=== PATIENT | female | born 1945 | race Hispanic/Latino ===

== ENCOUNTER 2021-12-23 00:12 | Emergency (ER) | payer OTHER ==
--- OUTSIDE RECORDS SUMMARY | 2021-12-23 00:18 | XMS REPORT | Continuity of Care Document ---
:1945 Author Organization [facility] t Address Formerly [facility], later [facility] [place] [id number] Care Team Providers Name Role Phone Kaya Gonzalez Attending Clinician Unavailable Problems This patient has no known problems. Allergies, Adverse Reactions, Alerts This patient has no known allergies or adverse reactions. Medications This patient has no known medications. Procedures This patient has no known procedures. Encounters Start End Encounter Admission Attending Care Care Encounter Source Date/Time Date/Time Type Type Clinicians Facility Department ID 2021-12-21 Outpatient Brooklynn Gonzalez [facility] [id number] 14:41:02 Ber[facility] forde [facility] Clin[facility] Results This patient has no known results.
--- NOTE | 2021-12-23 01:10 | EDPHYS ---
Physician Documentation [facility] Name: Ynes Jacob Age: 76 yrs Sex: Female : 1945 Arrival Date: 12/23/2021 Time: 00:18 Bed 14 Private MD: TEO Physician Cesar Melvin HPI: 12/23 01:04 This 76 yrs old Female presents to ER via Ambulatory with complaints of eleanor Vomiting, High Blood Pressure, Irregular Pulse. 01:04 The patient presents to the emergency department with nausea, vomiting, that is eleanor intermittent. Onset: The symptoms/episode began/occurred this morning, today. Possible causes: unknown. The symptoms are aggravated by nothing. The symptoms are alleviated by nothing. Associated signs and symptoms: Pertinent positives: belching, slow hr. Severity of symptoms: At their worst the symptoms were moderate in the emergency department the symptoms are unchanged. The patient has not experienced similar symptoms in the past. Historical: - Allergies: 00:37 No Known Allergies; vc1 - Home Meds: 00:37 glimepiride 2 mg Oral tab 1 tab once daily [Active]; spironolactone 50 mg Oral tab 1 vc1 tab once daily [Active]; metformin 1,000 mg Oral tab 1 tab 2 times per day [Active]; lisinopril 40 mg Oral tab 1 tab once daily [Active]; alendronate 70 mg oral tab 1 tab once wkly [Active]; amlodipine 10 mg tab 1 tab once daily [Active]; atorvastatin 20 mg oral tab 1 tab once daily [Active]; - PMHx: 00:37 Hypertensive disorder; Diabetes mellitus; vc1 - PSHx: 00:37 section; vc1 - Immunization history:: Flu vaccine is not up to date. - Social history:: Smoking status: Patient denies any tobacco usage or history of. - Family history:: not pertinent. ROS: 01:04 Constitutional: Negative for fever, chills, and weight loss, Eyes: Negative for injury, eleanor pain, redness, and discharge, ENT: Negative for injury, pain, and discharge, Neck: Negative for injury, pain, and swelling, Respiratory: Negative for shortness of breath, cough, wheezing, and pleuritic chest pain, Back: Negative for injury and pain, : Negative for injury, bleeding, discharge, and swelling, MS/Extremity: Negative for injury and deformity, Skin: Negative for injury, rash, and discoloration, Neuro: Negative for headache, weakness, numbness, tingling, and seizure, Psych: Negative for depression, anxiety, suicide ideation, homicidal ideation, and hallucinations, Allergy/Immunology: Negative for hives, rash, and allergies, Endocrine: Negative for neck swelling, polydipsia, polyuria, polyphagia, and marked weight changes, Hematologic/Lymphatic: Negative for swollen nodes, abnormal bleeding, and unusual bruising. 01:04 Cardiovascular: Positive for palpitations. 01:04 Abdomen/GI: Positive for nausea and vomiting. Exam: 01:04 Constitutional: This is a well developed, well nourished patient who is awake, alert, eleanor and in no acute distress. Head/Face: Normocephalic, atraumatic. Eyes: Pupils equal round and reactive to light, extra-ocular motions intact. Lids and lashes normal. Conjunctiva and sclera are non-icteric and not injected. Cornea within normal limits. Periorbital areas with no swelling, redness, or edema. ENT: Nares patent. No nasal discharge, no septal abnormalities noted. Tympanic membranes are normal and external auditory canals are clear. Oropharynx with no redness, swelling, or masses, exudates, or evidence of obstruction, uvula midline. Mucous membranes moist. Neck: Trachea midline, no thyromegaly or masses palpated, and no cervical lymphadenopathy. Supple, full range of motion without nuchal rigidity, or vertebral point tenderness. No Meningismus. Chest/axilla: Normal chest wall appearance and motion. Nontender with no deformity. No lesions are appreciated. Respiratory: Lungs have equal breath sounds bilaterally, clear to auscultation and percussion. No rales, rhonchi or wheezes noted. No increased work of breathing, no retractions or nasal flaring. Abdomen/GI: Soft, non-tender, with normal bowel sounds. No distension or tympany. No guarding or rebound. No evidence of tenderness throughout. Back: No spinal tenderness. No costovertebral tenderness. Full range of motion. Female : Normal external genitalia. Skin: Warm, dry with normal turgor. Normal color with no rashes, no lesions, and no evidence of cellulitis. MS/ Extremity: Pulses equal, no cyanosis. Neurovascular intact. Full, normal range of motion. Neuro: Awake and alert, GCS 15, oriented to person, place, time, and situation. Cranial nerves II-XII grossly intact. Motor strength 5/5 in all extremities. Sensory grossly intact. Cerebellar exam normal. Normal gait. Psych: Awake, alert, with orientation to person, place and time. Behavior, mood, and affect are within normal limits. 01:04 Cardiovascular: Rate: bradycardic, actual rate is 40 bpm, Rhythm: regular, Pulses: Pulses are 4+ in bilateral radial, brachial, femoral, popliteal, posterior tibial and and dorsalis pedis arteries.. Heart sounds: normal, Edema: is not appreciated, JVD: is not appreciated. 01:04 ECG was reviewed by the Attending Physician. Vital Signs: 00:28 BP 178 / 55; Pulse 38; Resp 18; Temp 97.1; Pulse Ox 96% ; Weight 68.49 kg; Height 5 ft. vc1 0 in. (152.40 cm); Pain 0/10; 00:56 BP 150 / 60; Pulse 40; Resp 18; Temp 98.6; Pulse Ox 99% on R/A; Pain 0/10; suraj 01:35 BP 150 / 50; Pulse 40; Resp 18; Pulse Ox 98% on R/A; Pain 0/10; suraj 02:03 BP 166 / 50; Pulse 40; Resp 18; Pulse Ox 99% on R/A; Pain 0/10; suraj 03:40 BP 187 / 55; Pulse 39; Resp 18; Pulse Ox 99% on R/A; Pain 0/10; suraj 04:30 BP 155 / 47; Pulse 40; Resp 16; Pulse Ox 100% on R/A; Pain 0/10; suraj 05:13 BP 183 / 55; Pulse 40; Resp 18; Pulse Ox 100% on R/A; Pain 0/10; suraj 05:51 BP 176 / 57; Pulse 40; Resp 16; Temp 98.5; Pulse Ox 100% on R/A; Pain 0/10; suraj 00:28 Body Mass Index 29.49 (68.49 kg, 152.40 cm) vc1 MDM: 00:45 Patient medically screened. [facility] 01:14 Data reviewed: vital signs, nurses notes, lab test result(s), EKG, radiologic studies, eleanor plain films. Data interpreted: night monitor: rate is 40 beats/min, rhythm is regular, Pulse oximetry: on room air is 99 %. Test interpretation: by ED physician or midlevel provider: ECG, plain radiologic studies. Counseling: I had a detailed discussion with the patient and/or guardian regarding: the historical points, exam findings, and any diagnostic results supporting the discharge/admit diagnosis, lab results, radiology results, the need to transfer to another facility, for higher level of care, [facility] does not immediately have the required specialist. 12/23 00:45 Order name: Basic Metabolic Panel; Complete Time: 01:39 [facility] 12/23 00:45 Order name: CBC with Diff; Complete Time: :28 [facility] 12/23 00:45 Order name: LFT's; Complete Time: :39 [facility] 12/23 00:45 Order name: Magnesium; Complete Time: :39 [facility] 12/23 00:45 Order name: NT PRO-BNP; Complete Time: :39 [facility] 12/23 00:45 Order name: PT-INR; Complete Time: : [facility] 12/23 00:45 Order name: Troponin HS; Complete Time: :39 [facility] 12/23 00:45 Order name: XRAY Chest (1 view) [facility] 12/23 00:45 Order name: TSH; Complete Time: :39 [facility] 12/23 00:45 Order name: SARS-COV-2 RT PCR (Document "Date of Onset" if Symptomatic) [facility] 12/23 01:23 Order name: Urine Dipstick-Ancillary; Complete Time: 01:28 [facility] 12/23 06:03 Order name: Glucose, Ancillary Testing [facility] 12/23 00:45 Order name: Cardiac monitoring; Complete Time: 00:54 [facility] 12/23 00:45 Order name: EKG - Nurse/Tech; Complete Time: 00:45 [facility] 12/23 00:45 Order name: IV Saline Lock; Complete Time: 00:53 [facility] 12/23 00:45 Order name: Labs collected and sent; Complete Time: 00:53 [facility] 12/23 00:45 Order name: O2 Per Protocol; Complete Time: 00:53 [facility] 12/23 00:45 Order name: O2 Sat Monitoring; Complete Time: 00:53 [facility] 12/23 00:45 Order name: Urine Dipstick-Ancillary (obtain specimen); Complete Time: 01:24 [facility] 12/23 02:35 Order name: Misc. Order: defib pads; Complete Time: 02:59 tw5 EC:04 Rate is 40 beats/min. Rhythm is regular. QRS [place] is Normal. VT interval is normal. [place] [address] msec. No Q waves. T waves are Normal. No ST changes noted. Clinical impression: 3rd degree heart block. Interpreted by me. Reviewed by me. Administered Medications: :19 Drug: NS 0.9% 1000 ml Route: IV; Rate: 125 ml/hr; Site: right antecubital; suraj 02:02 Drug: Magnesium Sulfate 1 grams Route: IVPB; Infused Over: 1 hrs; Site: right suraj antecubital; 03:17 Follow up: Response: No adverse reaction; IV Status: Completed infusion; IV Intake: 25mlbo Disposition Summary: 12/23/21 01:09 Transfer Ordered Reason: Higher level of care eleanor Condition: Serious eleanor Problem: new eleanor Symptoms: have improved eleanor Transfer Location: [facility](12/23/21 02:29) eleanor Accepting Physician: to [facility](12/23/21 06:28) suraj Diagnosis - Other specified heart block - 3rd eleanor - Vomiting eleanor - Anemia, unspecified eleanor - Type 2 diabetes mellitus with hyperglycemia eleanor - Hypomagnesemia eleanor Forms: - Medication Reconciliation Form eleanor - SBAR form eleanor Signatures: Dispatcher [employer] Cesar Alvarez MD MD cha Wood, Tiffany tw5 Kassy June RN Sandi Miguel RN RN vc1 Corrections: (The following items were deleted from the chart) 00:39 00:37 PSHx: None; vc1 vc1 01:42 01:09 to [facility] eleanor eleanor 02:29 01:09 [facility] eleanor eleanor 02:29 01:42 to [facility] eleanor eleanor 06:28 02:29 to [facility] eleanor suraj
--- NOTE | 2021-12-23 01:10 | ER ---
Nurse's Notes [facility] Name: Ynes Jacob Age: 76 yrs Sex: Female : 1945 Arrival Date: 12/23/2021 Time: 00:18 Bed 14 Private MD: Diagnosis: Other specified heart block-3rd;Vomiting;Anemia, unspecified;Type 2 diabetes mellitus with hyperglycemia;Hypomagnesemia Presentation: 12/23 00:28 Chief complaint: "She has a history of low pulse. She [facility] and vc1 they switched her blood pressure. I took her pulse it was 38. Today she told me that she didn't feel well and she threw up twice.". Coronavirus screen: Vaccine status: Patient reports being unvaccinated. Ebola Screen: Patient negative for fever greater than or equal to 101.5 degrees Fahrenheit, and additional compatible Ebola Virus Disease symptoms Patient denies exposure to infectious person. Patient denies travel to an Ebola-affected area in the 21 days before illness onset. Initial Sepsis Screen: Does the patient meet any 2 criteria? No. Patient's initial sepsis screen is negative. Does the patient have a suspected source of infection? No. Patient's initial sepsis screen is negative. Risk Assessment: Do you want to hurt yourself or someone else? Patient reports no desire to harm self or others. Onset of symptoms is unknown. 00:28 Method Of Arrival: Ambulatory vc1 00:28 Acuity: [facility] 3 vc1 Triage Assessment: 00:37 General: Appears in no apparent distress. Behavior is calm, cooperative, appropriate vc1 for age. Pain: Denies pain. GI: Reports nausea, vomiting. Historical: - Allergies: 00:37 No Known Allergies; vc1 - Home Meds: 00:37 glimepiride 2 mg Oral tab 1 tab once daily [Active]; spironolactone 50 mg Oral tab 1 vc1 tab once daily [Active]; metformin 1,000 mg Oral tab 1 tab 2 times per day [Active]; lisinopril 40 mg Oral tab 1 tab once daily [Active]; alendronate 70 mg oral tab 1 tab once wkly [Active]; amlodipine 10 mg tab 1 tab once daily [Active]; atorvastatin 20 mg oral tab 1 tab once daily [Active]; - PMHx: 00:37 Hypertensive disorder; Diabetes mellitus; vc1 - PSHx: 00:37 section; vc1 - Immunization history:: Flu vaccine is not up to date. - Social history:: Smoking status: Patient denies any tobacco usage or history of. - Family history:: not pertinent. Screenin:57 Abuse screen: Denies threats or abuse. Denies injuries from another. Nutritional suraj screening: No deficits noted. Tuberculosis screening: No symptoms or risk factors identified. Fall Risk None identified. Assessment: 00:54 Reassessment: Patient appears in no apparent distress at this time. I recv'd the pt to room #14 \\T\\ 0045. Her granddaughter is at bedside. The pt is Eritrean speaking mostly, but understands South African, per the pt and her granddaughter. They report that the pt has had "a low heartbeat for years, but down in the 30s for the last three days". 00:58 GI: Abdomen is non-distended. suraj 03:00 General: Per the director of community center, EMS will be here for the pt \\T\\ 6am. The defibrillator suraj pads were placed on the pt, per MD's order. . 03:26 General: Report called to [phone], \\T\\ [facility]. . suraj 05:51 General: The pt's blood sugar, at this time, is 127. . suraj 06:24 General: [facility] is here to take the pt to [facility]. Her suraj granddaughter is at bedside and will follow them, as she wants to keep her car. . Vital Signs: 00:28 BP 178 / 55; Pulse 38; Resp 18; Temp 97.1; Pulse Ox 96% ; Weight 68.49 kg; Height 5 ft. vc1 0 in. (152.40 cm); Pain 0/10; 00:56 BP 150 / 60; Pulse 40; Resp 18; Temp 98.6; Pulse Ox 99% on R/A; Pain 0/10; suraj 01:35 BP 150 / 50; Pulse 40; Resp 18; Pulse Ox 98% on R/A; Pain 0/10; suraj 02:03 BP 166 / 50; Pulse 40; Resp 18; Pulse Ox 99% on R/A; Pain 0/10; suraj 03:40 BP 187 / 55; Pulse 39; Resp 18; Pulse Ox 99% on R/A; Pain 0/10; suraj 04:30 BP 155 / 47; Pulse 40; Resp 16; Pulse Ox 100% on R/A; Pain 0/10; suraj 05:13 BP 183 / 55; Pulse 40; Resp 18; Pulse Ox 100% on R/A; Pain 0/10; suraj 05:51 BP 176 / 57; Pulse 40; Resp 16; Temp 98.5; Pulse Ox 100% on R/A; Pain 0/10; suraj 00:28 Body Mass Index 29.49 (68.49 kg, 152.40 cm) vc1 ED Course: 00:18 Patient arrived in ED. ag3 00:28 Arm band placed on right wrist. EKG completed in triage. Results shown to MD. vc1 00:36 Triage completed. vc1 00:43 Cesar Melvin MD is Attending Physician. eleanor 00:45 EKG done, by ED staff, reviewed by Cesar Melvin MD. lt3 00:53 Kassy June, RN is Primary Nurse. suraj 00:53 SARS-COV-2 RT PCR (Document "Date of Onset" if Symptomatic) Sent. suraj 00:53 TSH Sent. suraj 00:54 Basic Metabolic Panel Sent. suraj 00:54 CBC with Diff Sent. suraj 00:54 LFT's Sent. suraj 00:54 Magnesium Sent. suraj 00:54 NT PRO-BNP Sent. suraj 00:54 PT-INR Sent. suraj 00:54 Troponin HS Sent. suraj 00:57 No provider procedures requiring assistance completed. Inserted saline lock: 20 gauge suraj in right antecubital area, using aseptic technique. 00:58 Patient has correct armband on for positive identification. Adult w/ patient. Cardiac suraj monitor on. Pulse ox on. NIBP on. 01:11 XRAY Chest (1 view) In Process Unspecified. EDMS 01:13 SARS-COV-2 RT PCR (Document "Date of Onset" if Symptomatic) Sent. suraj 01:24 Urine collected: clean catch specimen. lt3 01:36 initiated a transfer with Salena from [facility]. mw2 01:48 [facility] Denied due to capacity. mw2 01:52 initiated a transfer with [facility]. mw2 02:[address] Melvin with Dr. Suarez from [facility]. mw2 02:36 administrative approval given by Manuel Santillan/ patient has been accepted to [address] to the Heart [facility]/ Dr. Long accepted the patient in transfer/report to be called to [phone]. 05:53 transfer transportation to receiving facility. suraj 06:27 Patient transferred, IV remains in place. suraj Administered Medications: 01:19 Drug: NS 0.9% 1000 ml Route: IV; Rate: 125 ml/hr; Site: right antecubital; suraj 02:02 Drug: Magnesium Sulfate 1 grams Route: IVPB; Infused Over: 1 hrs; Site: right suraj antecubital; 03:17 Follow up: Response: No adverse reaction; IV Status: Completed infusion; IV Intake: 25mlbo Intake: 03:17 IV: 25ml; Total: 25ml. suraj Outcome: 00:59 Condition: stable suraj 01:09 ER care complete, transfer ordered by MD. webster 06:26 Transferred by ground EMS to [facility], Transfer form completed. X-rays sent suraj w/ patient. 06:28 Patient left the ED. suraj Signatures: Dispatcher [employer] EDMS Cesar Melvin MD MD cha [place], MyKena mw2 Cecelia Haynes 3 Soo Suarez 3 Kassy June RN RN Sandi Suarez RN RN vc1 Corrections: (The following items were deleted from the chart) 00:39 00:37 PSHx: None; vc1 vc1
[2021-12-23 01:17] LABS: Protime INR 1.09
[2021-12-23] MEDS ORDERED: NA CHLORIDE 0.9% 1,000 ML ONE (01:17)
[2021-12-23 01:18] LABS: Absolute Lymphocytes (CBC) 1.1 K/uL (0.7-4.9); Hematocrit 31.2 % (36.0-45.0); Lymphocytes % 11.1 % (15.3-44.8); MPV 8.2 fL (7.6-11.3); RBC Red Blood Cell Count 3.42 M/uL (3.86-4.86)
[2021-12-23 01:23] LABS: Urine Blood Negative (Negative); Urine Glucose 2+ (Negative); Urine Protein 3+ (Negative); Urine Specific Gravity 1.025 (1.005-1.030); Urine pH 6.5 (5.0-7.0)
[2021-12-23 01:37] LABS: Bilirubin Direct 0.1 mg/dL (0-0.2); Bilirubin Total 0.3 mg/dL (0.2-1.0); Magnesium 1.5 mg/dL (1.8-2.4); Potassium 3.6 mmol/L (3.5-5.1); Protein, Total 7.8 g/dL (6.4-8.2); Thyroid Stimulating Hormone 0.769 uIU/mL (0.360-3.740); Troponin High Sensitivity 16.6 pg/mL (<58.9)
[2021-12-23] MEDS ORDERED: Magnesium Sulfate 2gm IVPB 2 G/50 ML BAG IV ONE (01:52)
[2021-12-23 06:40] VITALS: O2SAT 100
[2021-12-23 06:42] VITALS: BP 176/57; TEMP 98.5
--- NOTE | 2021-12-23 08:38 | RAD REPORT ---
EXAM DESCRIPTION: Tita Single View12/23/2021 1:12 am CLINICAL HISTORY: Chest pain COMPARISON: none FINDINGS: The lungs appear clear of acute infiltrate. The heart is moderately enlarged IMPRESSION: No acute abnormalities displayed. If patient's symptoms persist PA and lateral chest se lucian would be recommended
== END 2021-12-23 06:28 | disposition short-term general hospital (02) ==
LOC: ER 00:12
DX: I45.5 Other specified heart block (principal); D64.9 Anemia, unspecified; E11.65 Type 2 diabetes mellitus with hyperglycemia; E83.42 Hypomagnesemia; I10 Essential (primary) hypertension; Z20.822 Contact with and (suspected) exposure to COVID-19
CPT/HCPCS: 96365; 93005; 85025; 80048; 36415; 83735; 85610; 82947; 80076; 84443; 81003; 84484; 83880; 71045; 99285; U0003; J3475; J7030

== ENCOUNTER 2023-10-24 07:15 | Day surgery (SDC) | payer OTHER ==
[2023-10-24] MEDS ORDERED: NA CHLORIDE 0.9% 1,000 ML ONE (07:35)
[2023-10-24 08:08] VITALS: O2SAT 100
[2023-10-24] MEDS ORDERED: propofoL 200 MG/20 ML VIAL IV ONE (08:26)
[2023-10-24] MEDS ORDERED: LIDOCAINE 1% MPF 5 ML VIAL ONE (08:26)
[2023-10-24] MEDS ORDERED: EPHEDRINE SULF 50 MG/ML VIAL ONE (08:47)
[2023-10-24 10:12] VITALS: BP 126/55; TEMP 98
== END 2023-10-24 09:45 | disposition home or self-care (01) ==
LOC: OR 07:15
PROVIDERS: ATTEND Surgery
PROC: 0DBL8ZX Excision of Transverse Colon, Via Natural or Artificial Opening Endoscopic, Diagnostic (ICD-10-PCS; principal; 2023-10-24 08:30)
DX: Z12.11 Encounter for screening for malignant neoplasm of colon (principal); K63.5 Polyp of colon; K64.4 Residual hemorrhoidal skin tags; K64.8 Other hemorrhoids; K57.30 Diverticulosis of large intestine without perforation or abscess without bleeding; K63.89 Other specified diseases of intestine
CPT/HCPCS: 80048; 36415; 82947; 88305; 45384; J2704; J2001; J7030

== ENCOUNTER 2024-02-04 11:48 | Inpatient (IN) | payer OTHER ==
[2024-02-04 12:36] LABS: PT Prothrombin Time 11.6 SECONDS (9.5-12.5); Protime INR 1.06
[2024-02-04 12:37] LABS: Absolute Lymphocytes (CBC) 0.8 K/uL (0.7-4.9); Absolute Monocytes 0.6 K/uL (0.1-1.3); Absolute Neutrophil 9.1 K/uL (1.8-8.0); Basophils % 0.2 % (0-1.3); Eosinophils % 0.2 % (0-4.4); Hemoglobin 9.5 g/dL (12.0-15.0); Lymphocytes % 7.9 % (15.3-44.8); MCH 32.2 pg (27.0-35.0); MCHC 33.9 g/dL (32.0-36.0); MCV 94.9 fL (80-100); MPV 7.1 fL (7.6-11.3); Monocytes % 6.1 % (3.3-12.3); Neutrophils % 85.6 % (41.7-73.7); Platelets 293 thou/uL (152-406); RBC Red Blood Cell Count 2.94 M/uL (3.86-4.86); Red Cell Distribution Width 12.2 % (12.1-15.2)
[2024-02-04 12:53] LABS: Albumin 3.6 g/dL (3.4-5.0); Albumin/Globulin Ratio 1.1 (1.1-1.8); Anion Gap 16.2 mEq/L (5.0-15.0); Bilirubin Direct 0.1 mg/dL (0-0.2); Bilirubin Indirect, Calculated 0.3 mg/dL (0.2-0.8); Bilirubin Total 0.4 mg/dL (0.2-1.0); Globulin 3.4 g/dL (2.3-3.5); Potassium 5.2 mEq/L (3.5-5.1); Troponin High Sensitivity 7.4 pg/mL (<58.9)
[2024-02-04 12:56] LABS: Blood Morphology Comment NOT SEEN (NOT SEEN); Platelet Estimate ADEQ; White Blood Cell Scan OK (OK)
[2024-02-04 13:00] LABS: Magnesium 0.9 mg/dL (1.6-2.4)
[2024-02-04] MEDS ORDERED: NA CHLORIDE 0.9% 1,000 ML ONE (13:12)
[2024-02-04] MEDS ORDERED: Magnesium Sulfate 2gm IVPB 2 G/50 ML BAG IV ONE (13:12)
--- NOTE | 2024-02-04 13:26 | ER ---
Nurse's Notes [facility] Name: Ynes Jacob Age: 78 yrs Sex: Female : 1945 Arrival Date: 02/04/2024 Time: 11:48 Bed 17 Private MD: Diagnosis: Hypo-osmolality and hyponatremia;Hypomagnesemia;Anemia, unspecified;syncope Presentation: 02/03 11:59 Chief complaint: EMS states: pt had a syncopal episode while at work, was caught by a 6 customer and did not hit her head. pts boss reported to EMS that this was her 3rd episode in 1 week. EMS reports pt was hypotensive with SBP of 48 en route. BGL 190. Coronavirus screen: At this time, the client does not indicate any symptoms associated with coronavirus-19. Ebola Screen: No symptoms or risks identified at this time. Initial Sepsis Screen: Does the patient meet any 2 criteria? No. Patient's initial sepsis screen is negative. Does the patient have a suspected source of infection? No. Patient's initial sepsis screen is negative. Risk Assessment: Do you want to hurt yourself or someone else? Patient reports no desire to harm self or others. Onset of symptoms was February 04, 2024. 11:59 Method Of Arrival: EMS: [place] [id number] 11:59 Acuity: MC 3 kc6 Triage Assessment: 12:01 General: Appears in no apparent distress. comfortable, well groomed, well developed, kc6 Behavior is calm, cooperative, appropriate for age. Pain: Denies pain. EENT: No signs and/or symptoms were reported regarding the EENT system. Neuro: Level of Consciousness is awake, alert, obeys commands, Oriented to person, place, time, situation, Appropriate for age Reports a syncopal episode. Cardiovascular: Denies chest pain, Capillary refill < 3 seconds. Respiratory: Airway is patent Trachea midline Respiratory effort is even, unlabored, Respiratory pattern is regular, symmetrical. GI: No signs and/or symptoms were reported involving the gastrointestinal system. : No signs and/or symptoms were reported regarding the genitourinary system. Derm: No signs and/or symptoms reported regarding the dermatologic system. Skin is intact, is healthy with good turgor, Skin is pink, warm \T\ dry. Musculoskeletal: No signs and/or symptoms reported regarding the musculoskeletal system. Circulation, motion, and sensation intact. Capillary refill < 3 seconds, Range of motion: intact in all extremities. Historical: - Allergies: 12:01 No Known Allergies; kc6 - PMHx: 12:01 diabetes mellitus; Hypertensive disorder; Anemia; kc6 - PSHx: 12:01 section; pacemaker ( section); kc6 - Immunization history:: Adult Immunizations unknown. - Social history:: Smoking status: Patient denies any tobacco usage or history of. Screenin:03 [facility] ED Fall Risk Assessment (Adult) History of falling in the last 3 months, kc6 including since admission Yes- physiologic fall (2 pts) Confusion or Disorientation No (0 pts) Intoxicated or Sedated No (0 pts) Impaired Gait No (0 pts) Mobility Assist Device Used No (0 pt) Altered Elimination No (0 pt) Score/Fall Risk Level 0 - 2 = Low Risk. Abuse screen: Denies threats or abuse. Denies injuries from another. Nutritional screening: No deficits noted. Tuberculosis screening: No symptoms or risk factors identified. Assessment: 12:03 Reassessment: please see triage. kc6 13:03 Reassessment: Patient appears in no apparent distress at this time. No changes from [facility] previously documented assessment. Patient and/or family updated on plan of care and expected duration. Pain level reassessed. Patient is alert, oriented x 3, equal unlabored respirations, skin warm/dry/pink. GI: Stools are reported to be are black. 13:55 Reassessment: Patient appears in no apparent distress at this time. No changes from 6 previously documented assessment. Patient and/or family updated on plan of care and expected duration. Pain level reassessed. Patient is alert, oriented x 3, equal unlabored respirations, skin warm/dry/pink. Vital Signs: 11:59 BP 126 / 90; Pulse 67; Resp 16 S; Pulse Ox 96% on R/A; Weight 52.16 kg (R); Height 4 kc6 ft. 5 in. (R); Pain 0/10; 12:19 BP 109 / 78; kc6 12:43 BP 134 / 89; Pulse 66; Resp 16 S; Pulse Ox 100% on R/A; as6 13:55 BP 116 / 55; Pulse 66; Resp 16 S; Pulse Ox 94% on R/A; kc6 11:59 Body Mass Index 28.78 (52.16 kg, 134.62 cm) kc6 11:59 Pain Scale: Adult kc6 ED Course: 11:59 Patient arrived in ED. kc6 12:00 Bran Abrams DO is Attending Physician. ms3 12:01 Triage completed. kc6 12:01 Arm band placed on. kc6 12:03 Adrienne Palacios RN is Primary Nurse. kc6 12:03 Patient has correct armband on for positive identification. Placed in gown. Bed in low kc6 position. Call light in reach. Side rails up X2. Client placed on continuous cardiac and pulse oximetry monitoring. NIBP monitoring applied. bottle inspector on. 12:03 Maintain EMS IV. Dressing intact. Good blood return noted. Site clean \T\ dry. Gauge \T\ [place] 6 site: 20G LW. Patient maintains SpO2 saturation greater than 95% on room air. 12:42 Diet: Patient given snack. Patient given water. as6 13:06 Chest Single View XRAY In Process Unspecified. EDMS 13:26 Grupo Maradiaga MD is Hospitalizing Provider. ms3 13:51 Straight cath inserted, using sterile technique, 16 Fr. Specimen obtained. Returned kc6 clear yellow urine. Patient tolerated well. 13:56 No provider procedures requiring assistance completed. Patient admitted, IV remains in kc6 place. 19:33 Primary Nurse role handed off by Adrienne Palacios, ÁNGELA as6 Administered Medications: 13:51 Drug: Magnesium Sulfate IVPB 2 grams IVPB once over 2 hrs Route: IVPB; Infused Over: 2 kc6 hrs; Site: left wrist; 15:11 Follow up: Response: No adverse reaction; IV Status: Completed infusion; IV Intake: 45ooht6 13:51 Drug: NS 0.9% IV 1000 ml IV at 125 ml/hr continuous Route: IV; Rate: 125 ml/hr; Site: kc left wrist; 15:11 Follow up: Response: No adverse reaction; IV Status: Infusion continued upon admission; kc6 IV Intake: 1000ml Medication: 12:38 VIS not applicable for this client. as6 Intake: 15:11 IV: 50ml; Total: 50ml. kc6 15:11 IV: 1000ml; Total: 1050ml. kc6 Outcome: 13:26 Decision to Hospitalize by Provider. ms3 13:56 Admitted to ER Hold. Please see [facility] for further documentation. kc6 13:56 Condition: stable 13:56 Instructed on the need for admit, 02/04 13:38 Patient left the ED. kc6 Signatures: Dispatcher [employer] EDMS Bran Abrams DO DO ms3 Dalton Esquivel RN RN as6 Adrienne Palacios RN RN kc6
--- NOTE | 2024-02-04 13:26 | EDPHYS ---
Physician Documentation [facility] Name: Ynes Jacob Age: 78 yrs Sex: Female : 1945 Arrival Date: 02/04/2024 Time: 11:48 Bed 17 Private MD: ED Physician Bran Abrams HPI: 02/03 12:36 This 78 yrs old Female presents to ER via EMS with complaints of Syncope. ms3 12:36 78-year-old female with past medical history of diabetes, hypertension, anemia presents ms3 to the emergency department for syncopal episode while at work at [employer]. Patient denies nausea, vomiting, shortness of breath, chest pain, headache. Patient states this is her third syncopal episode this week.. Historical: - Allergies: 12:01 No Known Allergies; kc6 - PMHx: 12:01 diabetes mellitus; Hypertensive disorder; Anemia; kc6 - PSHx: 12:01 section; pacemaker ( section); kc6 - Immunization history:: Adult Immunizations unknown. - Social history:: Smoking status: Patient denies any tobacco usage or history of. ROS: 12:36 Constitutional: Negative for fever, and chills. Neck: Negative for injury, pain, and ms3 swelling, Cardiovascular: Negative for chest pain, and palpitations. Respiratory: Negative for shortness of breath, cough, wheezing, and pleuritic chest pain, Abdomen/GI: Negative for abdominal pain, nausea, vomiting, diarrhea, and constipation, MS/Extremity: Negative for injury and deformity, Skin: Negative for injury, rash, and discoloration, 12:36 Neuro: Positive for syncope, Exam: 12:36 Constitutional: This is a well developed, well nourished patient who is awake, alert, ms3 and in no acute distress. Head/Face: Normocephalic, atraumatic. Neck: Trachea midline, no cervical lymphadenopathy. Supple, full range of motion without nuchal rigidity, or vertebral point tenderness. No Meningismus. Chest/axilla: Normal chest wall appearance and motion. Nontender with no deformity. Cardiovascular: Regular rate and rhythm with a normal S1 and S2. No gallops, murmurs, or rubs. Normal PMI, no JVD. No pulse deficits. Respiratory: Lungs have equal breath sounds bilaterally, clear to auscultation and percussion. No rales, rhonchi or wheezes noted. No increased work of breathing, no retractions or nasal flaring. Abdomen/GI: Soft, non-tender, with normal bowel sounds. No distension or tympany. No guarding or rebound. No evidence of tenderness throughout. Skin: Warm, dry with normal turgor. Normal color with no rashes, no lesions, and no evidence of cellulitis. MS/ Extremity: Pulses equal, no cyanosis. Neurovascular intact. Full, normal range of motion. 12:46 ECG was reviewed by the Attending Physician. ms3 Vital Signs: 11:59 BP 126 / 90; Pulse 67; Resp 16 S; Pulse Ox 96% on R/A; Weight 52.16 kg (R); Height 4 kc6 ft. 5 in. (R); Pain 0/10; 12:19 BP 109 / 78; kc6 12:43 BP 134 / 89; Pulse 66; Resp 16 S; Pulse Ox 100% on R/A; as6 13:55 BP 116 / 55; Pulse 66; Resp 16 S; Pulse Ox 94% on R/A; kc6 11:59 Body Mass Index 28.78 (52.16 kg, 134.62 cm) kc6 11:59 Pain Scale: Adult kc6 MDM: 12:00 Patient medically screened. ms3 12:36 Differential Diagnosis: cardiac arrhythmia, idiopathic syncope, vasovagal episode. ms3 14:00 Data reviewed: vital signs, nurses notes, lab test result(s), EKG, radiologic studies, ms3 and as a result, I will admit patient. Consideration of Admission/Observation Patient was admitted/placed on observation. Management of patient was discussed with the following: Hospitalist: Dr Maradiaga. I considered the following discharge prescriptions or medication management in the emergency department Medications were administered in the Emergency Department. See MAR. Independent interpretation of the following test(s) in the Emergency Department EKG: See my EKG interpretation above. Historians other than the Patient: EMS: [place]. Counseling: I had a detailed discussion with the patient and/or guardian regarding the historical points, exam findings, and any diagnostic results supporting the discharge/admit diagnosis, lab results, radiology results, the need for outpatient follow up, to return to the emergency department if symptoms worsen or persist or if there are any questions or concerns that arise at home. Special discussion: I discussed with the patient/guardian in detail that at this point there is no indication for admission to the hospital. It is understood, however, that if the symptoms persist or worsen the patient needs to return immediately for re-evaluation. ED course: Discussed necessity for admission with patient. Patient understands agrees with plan. All questions were answered. 02/03 12:01 Order name: Basic Metabolic Panel; Complete Time: 13:07 ms3 02/03 12:01 Order name: CBC with Diff; Complete Time: 13: ms3 02/03 12:01 Order name: Hepatic Function; Complete Time: 13:08 ms3 02/03 12:01 Order name: Magnesium; Complete Time: 13: ms3 02/03 12:01 Order name: Protime (+inr); Complete Time: 13: ms3 02/03 12:01 Order name: Ptt, Activated; Complete Time: 13: ms3 02/03 12:01 Order name: Troponin High Sensitivity; Complete Time: 13: ms3 02/03 12:01 Order name: Urinalysis w/ reflexes; Complete Time: 15:30 ms3 02/03 12:56 Order name: CBC Smear Scan; Complete Time: 13: EDMS 02/03 13:09 Order name: Urine Sodium Random; Complete Time: 15:30 ms3 02/03 13:09 Order name: Urine Osmolality; Complete Time: 15:30 ms3 02/03 13:10 Order name: Osmolality, Serum; Complete Time: 15:30 ms3 02/03 16:24 Order name: Glucose, Ancillary Testing EDMS 02/03 19:09 Order name: Basic Metabolic Panel EDMS 02/03 19:09 Order name: Troponin High Sensitivity EDMS 02/03 19:09 Order name: Magnesium EDMS 02/03 20:14 Order name: Glucose, Ancillary Testing EDMS 02/04 05:20 Order name: CBC with Automated Diff EDMS 02/04 05:43 Order name: Comprehensive Metabolic Panel EDMS 02/04 05:43 Order name: Phosphorus EDMS 02/04 05:43 Order name: Troponin High Sensitivity EDMS 02/04 05:43 Order name: T4 Free EDMS 02/04 05:43 Order name: Magnesium EDMS 02/04 05:43 Order name: Thyroid Stimulating Hormone EDMS 02/04 07:37 Order name: Glucose, Ancillary Testing EDTN 02/04 07:43 Order name: Urine Culture EDTN 02/04 11:29 Order name: Basic Metabolic Panel EDTN 02/04 11:55 Order name: Iron EDTN 02/04 11:55 Order name: Ferritin EDTN 02/04 12:18 Order name: Glucose, Ancillary Testing EDTN 02/03 12:01 Order name: Chest Single View XRAY; Complete Time: 13:33 ms3 02/03 12:01 Order name: EKG; Complete Time: 12:01 ms3 02/03 12:01 Order name: Cardiac monitoring; Complete Time: 12:14 ms3 02/03 12:01 Order name: EKG - Nurse/Tech; Complete Time: 12:14 ms3 02/03 12:01 Order name: IV Saline Lock; Complete Time: 12:04 ms3 02/03 12:01 Order name: Labs collected and sent; Complete Time: 12:14 ms3 02/03 12:01 Order name: NPO; Complete Time: 12:03 ms3 02/03 12:01 Order name: O2 Per Protocol; Complete Time: 12:04 ms3 02/03 12:01 Order name: O2 Sat Monitoring; Complete Time: 12:04 ms3 02/03 13:10 Order name: Straight Cath - Urine; Complete Time: 13:51 ms3 EC:46 Rate is 64 beats/min. Rhythm is regular. QRS [place] is Normal. QRS interval is prolonged. ms3 Clinical impression: Pacemaker. Interpreted by me. Reviewed by me. Administered Medications: 13:51 Drug: Magnesium Sulfate IVPB 2 grams IVPB once over 2 hrs Route: IVPB; Infused Over: 2 kc6 hrs; Site: left wrist; 15:11 Follow up: Response: No adverse reaction; IV Status: Completed infusion; IV Intake: 23pxwa3 13:51 Drug: NS 0.9% IV 1000 ml IV at 125 ml/hr continuous Route: IV; Rate: 125 ml/hr; Site: kc6 left wrist; 15:11 Follow up: Response: No adverse reaction; IV Status: Infusion continued upon admission; kc6 IV Intake: 1000ml Disposition Summary: 02/04/24 13:26 Hospitalization Ordered Notes: Hospitalization Status: Inpatient Admission ms3 Provider: Grupo Maradiaga ms3 Condition: Stable ms3 Problem: new ms3 Symptoms: are unchanged ms3 Bed/Room Type: Standard ms3 Location: Telemetry/MedSurg (Inpatient)(02/05/24 12:50) eb Room Assignment: [facility](02/05/24 12:50) eb Diagnosis - Hypo-osmolality and hyponatremia ms3 - Hypomagnesemia ms3 - Anemia, unspecified ms3 - syncope ms3 Forms: - Medication Reconciliation Form ms3 - SBAR form ms3 - Leadership Thank You Letter ms3 Signatures: Dispatcher [employer] EDMS Keagan Bob, STOCK WORKER-C STOCK WORKER-Cla1 Bettie Lobato Marcus, DO DO ms3 Adrienne Palacios, RN RN kc6 Corrections: (The following items were deleted from the chart) 12:01 12:01 BASIC METABOLIC PANEL+C.LAB.BRZ ordered. EDMS EDMS 12: 12:01 CBC+H.LAB.BRZ ordered. EDMS EDMS 12: 12:01 HEPATIC FUNCTION+C.LAB.BRZ ordered. EDMS EDMS 12: 12:01 MAGNESIUM+C.LAB.BRZ ordered. EDMS EDMS 12:01 12:01 PROTIME (+INR)+COAG.LAB.BRZ ordered. EDMS EDMS 12:01 12:01 PTT, ACTIVATED+COAG.LAB.BRZ ordered. EDMS EDMS 12:01 12:01 Troponin High Sensitivity+C.LAB.BRZ ordered. EDMS EDMS 12:01 12:01 Urinalysis+U.LAB.BRZ ordered. EDMS EDMS 13:34 13:26 Telemetry/MedSurg (Inpatient) ms3 eb 13:34 13:26 ms3 eb 02/04 12:50 02/03 13:34 [facility] ER HOLD eb eb 02/04 12:50 02/03 13:34 ERHOLD- eb eb
--- NOTE | 2024-02-04 13:32 | RAD REPORT ---
EXAM DESCRIPTION: Tita Single View02/04/2024 1:04 pm CLINICAL HISTORY: Syncope COMPARISON: 2021 FINDINGS: The lungs appear clear of acute infiltrate. The heart is mildly to moderately enlarged. P acemaker leads are in place. IMPRESSION: No acute abnormalities displayed
[2024-02-04] MEDS ORDERED: ONDANSETRON 4 MG/2 ML VIAL IV PRN (14:29)
[2024-02-04] MEDS: NA CHLORIDE 0.9% 1,000 ML IV SCH (14:31)
[2024-02-04 14:33] LABS: Specific Gravity 1.012 (1.005-1.030); Sqamous Epithelial None Seen /HPF (None Seen); Urine Bacteria >50 /HPF (<20); Urine Bilirubin NEGATIVE (Negative); Urine Blood Negative (Negative); Urine Clarity Turbid (Clear); Urine Color Light-Yellow (Yellow); Urine Culture Reflex Order REFLEXED; Urine Glucose NEGATIVE (Negative); Urine Ketones NEGATIVE (Negative); Urine Microscopic Reflex YN ORDER UMIC; Urine Nitrite NEGATIVE (Negative); Urine Protein TRACE (Negative); Urine RBC <5 /HPF (None Seen); Urine Urobilinogen Normal (Normal); Urine WBC 20-50 /HPF (<5); Urine WBC Clump Rare /HPF (None Seen); Urine pH 5.5 (5.0-7.0)
[2024-02-04 15:30] VITALS: BMI 28.8
--- NOTE | 2024-02-04 15:45 | P.HP ---
Certification for Inpatient Patient admitted to: Inpatient With expected LOS: >2 Midnights Patient will require the following post-hospital care: None Practitioner: I am a practitioner with admitting privileges, knowledge of patient current condition, hospital course, and medical plan of care. Services: Services provided to patient in accordance with Admission requirements found in Title 42 Section 412.3 of the Code of Federal Regulations Patient History Date of Service: 02/04/24 Reason for admission: Hyponatremia History of Present Illness: 78-year-old female with history of diabetes mellitus type 2 as [id number], hypertension, iron deficiency anemia presents to the emergency department with chief complaint of syncope. She reports has been working at [employer] and working very hard with little breaks, does not feel as if she has been having adequate intake while at work. Patient was evaluated in the emergency department her labs were significant for sodium of 118 potassium 5.2 chloride 89 bicarb 18 BUN 27 creatinine 1.34 GFR 41 glucose 160 magnesium 0.9 hemoglobin 9.5. Patient apparently had a syncopal episode at work he was found to be hypotensive on the scene. At home she does take hydrochlorothiazide 50 mg and spironolactone 50 mg daily at home for blood pressure she also reports she had a colonoscopy a few months ago with Dr. Zelaya which was routine without significant findings. Patient wanted to be admitted for further evaluation and management of hyponatremia Allergies No Known Allergies Allergy (Verified 10/21/23 15:10) Home Medications: Amlodipine Besylate 10 mg PO DAILY 10/21/23 Aspirin Chewable [Aspirin Chewable*] 81 mg PO DAILY 10/21/23 Atorvastatin Calcium [Lipitor] 40 mg PO BEDTIME 10/21/23 Cholecalciferol (Vitamin D3) [Vitamin D3] 125 mcg PO DAILY 10/21/23 Ferrous Sulfate [Iron] 325 mg PO DAILY 10/21/23 Melatonin 10 mg PO BEDTIME 10/21/23 Metformin HCl 1,000 mg PO BID 10/21/23 [place]-3/Dha/Epa/Fish Oil [Nuretin Softgel] 1 each PO DAILY 10/21/23 Spironolactone [Aldactone] 50 mg PO DAILY 10/21/23 Vitamin D3/Zinc 1 cap PO DAILY 10/21/23 hydroCHLOROthiazide [Hydrochlorothiazide] 50 mg PO DAILY 10/21/23 lisinopriL [Lisinopril] 40 mg PO DAILY 10/21/23 - Past Medical/Surgical History -: Hypertension -: Anemia -: Diabetes mellitus type 2 -: -: Pacemaker Psychosocial/ Personal History: Lives at home with her son - Social History Alcohol use: No CD- Drugs: No Caffeine use: Yes Place of Residence: Home Review of Systems 10-point ROS is otherwise unremarkable General: Weakness Cardiovascular: Other (syncope) Physical Examination - Physical Exam General: Alert, In no apparent distress, Oriented x3 HEENT: Atraumatic, PERRLA, EOMI Neck: Supple, 2+ carotid pulse no bruit Respiratory: Clear to auscultation bilaterally, Normal air movement Cardiovascular: Regular rate/rhythm, Normal S1 S2 Gastrointestinal: Normal bowel sounds Musculoskeletal: No tenderness Integumentary: No rashes Neurological: Normal gait, Normal speech, Normal strength at 5/5 x4 extr, Normal tone - Studies Laboratory Data (last 24 hrs) 02/04/24 02/04/24 02/04/24 12:20 12:20 12:20 WBC 10.70 Hgb 9.5 L Hct 28.0 L Plt Count 293 PT 11.6 INR 1.06 APTT 28.0 Sodium 118 L* Potassium 5.2 H BUN 27 H Creatinine 1.35 H Glucose 160 H Magnesium 0.9 L* Total Bilirubin 0.4 AST 19 ALT 17 Alkaline Phosphatase 60 Assessment and Plan - Plan Assessment: Hyponatremia Hypomagnesemia Iron deficiency anemia Hypertension Diabetes mellitus type [id number] Plan: Hyponatremia Hypomagnesemia Likely secondary to poor oral nutrition/hydration in addition to hydrochlorothiazide, spironolactone Patient also had a colonoscopy a couple months ago, prep may have contributed Continue gentle IV fluids, recheck in history at 1800 today Nephrology consulted and following Magnesium replace, protocol in place Iron deficiency anemia Continue iron supplementation Does report dark stools since starting taking iron at home Monitor H&H closely Hypertension Hold hydrochlorothiazide, spironolactone Restart other medications as appropriate, may need new medications at discharge Diabetes mellitus type [id number]-hfqxzijds ACHS Accu-Chek, sliding scale insulin DVT PPX: Lovenox Code status: Full Discharge Plan: Home Plan to discharge in: 48 Hours - Advance Directives Does patient have a Living Will: No Does patient have a Durable POA for Healthcare: No - Code Status/Comfort Care Code Status Assessed: Yes (Full code) Critical Care: No Time Spent Managing Pts Care (In Minutes): 70
[2024-02-04] MEDS: INSULIN REGULAR (HUMAN) 100 UNIT/ML SQ SCH (16:13)
[2024-02-04 19:08] LABS: Anion Gap 16.3 mEq/L (5.0-15.0); Magnesium 1.6 mg/dL (1.6-2.4); Potassium 5.3 mEq/L (3.5-5.1); Troponin High Sensitivity 7.9 pg/mL (<58.9)
[2024-02-05 05:15] LABS: Absolute Lymphocytes (CBC) 1.1 K/uL (0.7-4.9); Absolute Monocytes 0.8 K/uL (0.1-1.3); Absolute Neutrophil 4.6 K/uL (1.8-8.0); Basophils % 0.3 % (0-1.3); Eosinophils % 0.4 % (0-4.4); Hemoglobin 8.6 g/dL (12.0-15.0); Lymphocytes % 17.2 % (15.3-44.8); MCH 32.2 pg (27.0-35.0); MCHC 34.2 g/dL (32.0-36.0); MCV 94.1 fL (80-100); Monocytes % 11.8 % (3.3-12.3); Neutrophils % 70.3 % (41.7-73.7); Platelets 270 thou/uL (152-406); RBC Red Blood Cell Count 2.66 M/uL (3.86-4.86); Red Cell Distribution Width 12.3 % (12.1-15.2)
[2024-02-05 05:42] LABS: Albumin 3.3 g/dL (3.4-5.0); Albumin/Globulin Ratio 1.1 (1.1-1.8); Anion Gap 10.5 mEq/L (5.0-15.0); Bilirubin Total 0.4 mg/dL (0.2-1.0); Magnesium 1.5 mg/dL (1.6-2.4); Phosphorus 1.6 mg/dL (2.5-4.9); Potassium 4.5 mEq/L (3.5-5.1); Protein, Total 6.3 g/dL (6.4-8.2); Thyroid Stimulating Hormone 0.495 uIU/mL (0.358-3.740); Troponin High Sensitivity 9.3 pg/mL (<58.9)
[2024-02-05] MEDS: Magnesium Sulfate 2gm IVPB 2 G/50 ML BAG IV ONE (07:30)
[2024-02-05] MEDS ORDERED: Magnesium Sulfate 2gm IVPB 2 G/50 ML BAG IV ONE (07:37)
[2024-02-05] MEDS ORDERED: D5W 1,000 ML IV ONE (08:13)
[2024-02-05] MEDS: D5W 1,000 ML IV SCH (08:21)
[2024-02-05] MEDS ORDERED: CEFTRIAXONE 1000 MG/VIAL ONE (08:41)
[2024-02-05] MEDS ORDERED: NA CHLORIDE 0.9% 50 ML ONE (08:42)
[2024-02-05] MEDS ORDERED: ENOXAPARIN 30 MG/0.3 ML SQ ONE (08:42)
[2024-02-05] MEDS: CEFTRIAXONE 1,000 MG in NA CHLORIDE 0.9% 50 ML IVPB SCH (08:45)
[2024-02-05] MEDS: ENOXAPARIN 30 MG/0.3 ML SQ SCH (08:45)
[2024-02-05 11:29] LABS: Anion Gap 10.1 mEq/L (5.0-15.0); Potassium 4.1 mEq/L (3.5-5.1)
[2024-02-05 11:55] LABS: Ferritin 120.1 ng/mL (8-388)
--- NOTE | 2024-02-05 13:39 | P.PN ---
Date of Service: 02/05/24 Subjective: Feeling much better today Denies any complaints Still reports dark stool since she started iron ROS: 10 point ROS as noted above, otherwise negative Physical exam GEN: Alert, oriented, NAD HEENT: Normal conjunctiva, sclera anicteric CV: Regular rate and rhythm, no edema Pulm: Nonlabored respirations on room air ABD: Soft, nontender, nondistended MSK: No joint tenderness Integumentary: No rashes Neuro: Normal speech, normal affect Vitals reviewed Assessment: Hyponatremia Hypomagnesemia Iron deficiency anemia Hypertension Diabetes mellitus type [id number] Plan: Hyponatremia Hypomagnesemia Likely secondary to poor oral nutrition/hydration in addition to hydrochlorothiazide, spironolactone Patient also had a colonoscopy a couple months ago, prep may have contributed Sodium improving Nephrology consulted and following Magnesium replace, protocol in place Iron deficiency anemia Continue iron supplementation Does report dark stools since starting taking iron at home Monitor H&H closely Iron studies ordered Hypertension Hold hydrochlorothiazide, spironolactone Restart other medications as appropriate, may need new medications at discharge Diabetes mellitus type [id number] ACHS Accu-Chek, sliding scale insulin DVT PPX: Lovenox Code status: Full Discharge Plan: Home Plan to discharge in: 48 Hours Time Spent Managing Pts Care (In Minutes): 35
[2024-02-05 15:21] VITALS: O2SAT 94
[2024-02-05 17:19] LABS: Anion Gap 10.1 mEq/L (5.0-15.0); Potassium 5.1 mEq/L (3.5-5.1)
--- NOTE | 2024-02-05 17:27 | CON ---
Date of Consultation: 02/05/2024 Reason For Consult: Hyponatremia. History Of Present Illness: Ms. Anthony Jacob is a 78-year-old female with past medical history s ignificant for history of hypertension and well controlled type 2 diabetes, presented to the hospital after she had an episode of syncope. She has been working at [employer] and has not been getting prop er breaks. She has been on and off having dizzy spells for the last several 3 days and hence came to the hospital for further evaluation. She was noted to have a sodium of 118 when she came to the [facility]. She has improved with normal saline administration. She has been reportedly taking hydrochlo rothiazide 50 mg a day for many years. The patient denies any other previous history of hyponatremia s in the past. Her last sodium back in October of 2023 was noted to be 134. Past Medical History: Significant for history of type 2 diabetes, hypertension, and hyperlipidemia. Social History: Lives at home. No history of smoking, alcohol, or drug use reported. Family History: Noncontributory. Physical Examination: Vital signs: Showing temperature of 97, pulse rate of 66, blood pressure of 116/55. General: She appears in no acute distress. Lungs: Clear to auscultation. Heart: Auscultation of the heart revealed regular rate and rhythm. Abdomen: Soft and nontender. Extremities: Showed no evidence of edema. Laboratory Data: Showing sodium improving to 128. Other electrolytes showing mild hypochloremia, bu t otherwise stable. Glucose levels were slightly high, but less than 150 range. Her UA was consiste nt with infection and urine preliminary cultures are showing evidence of gram-negative rods. Current Medications: Have been reviewed. The patient is currently not receiving any IV fluids. Cur rently on Rocephin 1 g daily. Impression: 1.Hyponatremia precipitated by HCTZ use. The patient also has had weight loss and poor p.o. intake for several weeks and also has been having UTI. I agree with discontinuing HCTZ. Her sodium levels have corrected. We will continue to encourage p.o. intake, and monitor sodium levels. 2.Urinary tract infection. Continue Rocephin. Follow up on cultures. 3.Hypertension. Discontinue HCTZ. We will go ahead and get amlodipine started at a lower dose and monitor closely. Plan: Plan was discussed with the patient in detail. All questions were answered and we will follow up. NANETTE/BUCK Voice ID: [id number] Report ID: [id number]
[2024-02-06] MEDS: PANTOPRAZOLE 40MG TABLET PO SCH (06:12)
[2024-02-06 07:06] LABS: Absolute Eosinophils 0.1 K/uL (0-0.5); Absolute Lymphocytes (CBC) 1.5 K/uL (0.7-4.9); Absolute Monocytes 0.9 K/uL (0.1-1.3); Absolute Neutrophil 6.7 K/uL (1.8-8.0); Basophils % 0.4 % (0-1.3); Eosinophils % 1.5 % (0-4.4); Hematocrit 26.1 % (36.0-45.0); Lymphocytes % 16.1 % (15.3-44.8); MCH 32.6 pg (27.0-35.0); MCHC 34.6 g/dL (32.0-36.0); MCV 94.3 fL (80-100); MPV 6.9 fL (7.6-11.3); Monocytes % 9.8 % (3.3-12.3); Neutrophils % 72.2 % (41.7-73.7); Platelets 284 thou/uL (152-406); RBC Red Blood Cell Count 2.77 M/uL (3.86-4.86); Red Cell Distribution Width 12.2 % (12.1-15.2)
[2024-02-06 07:14] LABS: Albumin 3.4 g/dL (3.4-5.0); Albumin/Globulin Ratio 1.1 (1.1-1.8); Anion Gap 10.4 mEq/L (5.0-15.0); Bilirubin Total 0.4 mg/dL (0.2-1.0); Globulin 3.2 g/dL (2.3-3.5); Phosphorus 2.4 mg/dL (2.5-4.9); Potassium 4.4 mEq/L (3.5-5.1); Protein, Total 6.6 g/dL (6.4-8.2)
[2024-02-06] MEDS: AMLODIPINE 5 MG TAB PO SCH (09:00)
[2024-02-06 09:17] VITALS: BP 139/64; TEMP 97.7
--- NOTE | 2024-02-06 13:45 | EKG ---
Test Date: 2024-02-04 Test Time: 11:12:13 [employer] Pul[employer] Operator: JEFFERSON MEASUREMENT RESULTS: Intervals: Rate: 64 NE: 234 QRSD: 164 QT: 468 QTc: 482 [place]: P: 66 NE: 234 QRS: -74 T: 123 INTERPRETIVE STATEMENTS: Electronic ventricular pacemaker Compared to ECG 12/23/2021 00:35:06 Sinus bradycardia no longer present AV dissociation no longer present Left-axis deviation no longer present ST (T wave) deviation no longer present Possible ischemia no longer present Prolonged QT interval no longer present Electronically Signed On 02-06-24 13:37:53 CDT by Jung May
--- NOTE | 2024-02-06 15:12 | P.DS ---
Admission Date: 02/04/24 Discharge Date: 02/06/24 Disposition: ROUTINE DISCHARGE Discharge Condition: GOOD Reason for Admission: Hyponatremia Consultations: Nephrology-Dr. Krause Brief History of Present Illness: 78-year-old female with history of diabetes mellitus type 2 as [id number], hypertension, iron deficiency anemia presents to the emergency department with chief complaint of syncope. She reports has been working at [employer] and working very hard with little breaks, does not feel as if she has been having adequate intake while at work. Patient was evaluated in the emergency department her labs were significant for sodium of 118 potassium 5.2 chloride 89 bicarb 18 BUN 27 creatinine 1.34 GFR 41 glucose 160 magnesium 0.9 hemoglobin 9.5. Patient apparently had a syncopal episode at work he was found to be hypotensive on the scene. At home she does take hydrochlorothiazide 50 mg and spironolactone 50 mg daily at home for blood pressure she also reports she had a colonoscopy a few months ago with Dr. Zelaya which was routine without significant findings. Patient wanted to be admitted for further evaluation and management of hyponatremia Hospital Course: Physician discharge instructions Patient was admitted to the hospital for syncope, acute kidney injury, hyponatremia, hyperkalemia, hypomagnesemia. It was thought that her symptoms and abnormal lab values are related to use of spironolactone, hydrochlorothiazide and decreased oral intake. Patient was treated with IV fluids and her hydrochlorothiazide and spironolactone were held. She is also monitored on telemetry and her troponins were trended which were negative and trended flat, no significant arrhythmias noted on telemetry. Her sodium improved from 118-129 and remained stable off of IV fluids, her other electrolytes also improved as well as her acute kidney injury, at discharge her sodium is 129 creatinine is 0.77. Recommend discontinuation of hydrochlorothiazide and spironolactone Continue other home medications as prescribed, it appears you used to take amlodipine 10 mg daily, a new prescription has been sent to the pharmacy for this. If you already have some at home please make sure you are not taking duplicate of this medication. Patient was also noted to have urinary tract infection with urine culture showing 3+ gram-negative rods, patient was started on Rocephin in the hospital and will be treated outpatient with cefdinir for 4 additional days. Discontinue the following medications-hydrochlorothiazide, spironolactone Resume/start the following medication amlodipine 10 mg daily Continue other home medications as prescribed Be sure to stay well-hydrated Please follow-up with your primary care doctor in 1 to 2 weeks Please also follow-up with nephrology in 1 to 2 weeksDr. Krause You should have your sodium level rechecked at that time, at discharge it was 129 It was also noted that patient had dark stools that she reports started after she began taking iron, hemoglobin was stable around 9. Recommend outpatient follow-up with GI for further evaluation/EGD. Assessment: Hyponatremia Hypomagnesemia Iron deficiency anemia Hypertension Diabetes mellitus type [id number] Vital Signs/Physical Exam: Temp Pulse Resp BP Pulse Ox 97.7 F 60 15 139/64 100 02/06/24 08:00 02/06/24 08:00 02/06/24 08:00 02/06/24 08:00 02/06/24 08:00 General: Alert, In no apparent distress, Oriented x3 HEENT: Atraumatic, PERRLA Neck: Supple, JVD not distended Respiratory: Clear to auscultation bilaterally, Normal air movement Cardiovascular: Regular rate/rhythm, Normal S1 S2 Gastrointestinal: Normal bowel sounds, No tenderness Musculoskeletal: No tenderness Integumentary: No rashes Neurological: Normal speech, Normal tone, Normal affect Laboratory Data at Discharge: WBC 9.30 thou/uL (4.3-10.9) 02/06/24 06:19 Hgb 9.0 g/dL (12.0-15.0) L 02/06/24 06:19 Hct 26.1 % (36.0-45.0) L 02/06/24 06:19 Plt Count 284 thou/uL (152-406) 02/06/24 06:19 PT 11.6 SECONDS (9.5-12.5) 02/04/24 12:20 INR 1.06 02/04/24 12:20 APTT 28.0 SECONDS (24.3-36.9) 02/04/24 12:20 Sodium 129 mEq/L (136-145) L 02/06/24 06:19 Potassium 4.4 mEq/L (3.5-5.1) D 02/06/24 06:19 BUN 16 mg/dL (7-18) 02/06/24 06:19 Creatinine 0.77 mg/dL (0.55-1.02) 02/06/24 06:19 Glucose 103 mg/dL (74-106) 02/06/24 06:19 Phosphorus 2.4 mg/dL (2.5-4.9) L 02/06/24 06:19 Magnesium 1.7 mg/dL (1.6-2.4) 02/05/24 15:07 Total Bilirubin 0.4 mg/dL (0.2-1.0) 02/06/24 06:19 AST 15 U/L (15-37) 02/06/24 06:19 ALT 17 U/L (13-56) 02/06/24 06:19 Alkaline Phosphatase 55 U/L (45-117) 02/06/24 06:19 Home Medications: Amlodipine [Norvasc*] 10 mg PO DAILY 02/05/24 Ascorbic Acid [Vitamin C] 250 mg PO DAILY 02/05/24 Atorvastatin Calcium 40 mg PO DAILY 02/05/24 Ferrous Sulfate [Ferrous Sulfate*] 325 mg PO BID 02/05/24 Lisinopril [Zestril] 40 mg PO DAILY 02/05/24 Metformin HCl 1,000 mg PO BID 02/05/24 Multivit-Min/Iron/Folic/Lutein [Multivitamin Women 50 Plus Tab] 1 tab PO DAILY 02/05/24 Amlodipine [Norvasc*] 10 mg PO DAILY #30 tab 02/06/24 Cefdinir [Cefdinir*] 300 mg PO BID 4 Days #8 cap 02/06/24 New Medications: Cefdinir [Cefdinir*] 300 mg PO BID 4 Days #8 cap Amlodipine [Norvasc*] 10 mg PO DAILY #30 tab Physician Discharge Instructions: Physician discharge instructions Patient was admitted to the hospital for syncope, acute kidney injury, hyponatremia, hyperkalemia, hypomagnesemia. It was thought that her symptoms and abnormal lab values are related to use of spironolactone, hydrochlorothiazide and decreased oral intake. Patient was treated with IV fluids and her hydrochlorothiazide and spironolactone were held. She is also monitored on telemetry and her troponins were trended which were negative and trended flat, no significant arrhythmias noted on telemetry. Her sodium improved from 118-129 and remained stable off of IV fluids, her other electrolytes also improved as well as her acute kidney injury, at discharge her sodium is 129 creatinine is 0.77. Recommend discontinuation of hydrochlorothiazide and spironolactone Continue other home medications as prescribed, it appears you used to take amlodipine 10 mg daily, a new prescription has been sent to the pharmacy for this. If you already have some at home please make sure you are not taking duplicate of this medication. Patient was also noted to have urinary tract infection with urine culture showing 3+ gram-negative rods, patient was started on Rocephin in the hospital and will be treated outpatient with cefdinir for 4 additional days. Discontinue the following medications-hydrochlorothiazide, spironolactone Resume/start the following medication amlodipine 10 mg daily Continue other home medications as prescribed Be sure to stay well-hydrated Please follow-up with your primary care doctor in 1 to 2 weeks Please also follow-up with nephrology in 1 to 2 weeksDrNichol Krause You should have your sodium level rechecked at that time, at discharge it was 129 It was also noted that patient had dark stools that she reports started after she began taking iron, hemoglobin was stable around 9. Recommend outpatient follow-up with GI for further evaluation/EGD. Diet: ADA Activity: Ad rupali Followup: Tracey Orr MD [Primary Care Provider] - 1-2 Weeks Maxine Krause MD [ACTIVE - CAN ADMIT] - 1-2 Weeks Time spent managing pt's care (in minutes): 30
--- NOTE | 2024-02-06 21:27 | P.PN ---
Date of Service: 02/06/24 Vital Signs Temp Pulse Resp BP Pulse Ox 97.7 F 60 15 139/64 100 02/06/24 08:00 02/06/24 08:00 02/06/24 08:00 02/06/24 08:00 02/06/24 08:00 Microbiology Results 02/04/24 13:47 Clean Catch Urine [place] Count - Preliminary >100,000 CFU/ML. 02/04/24 13:47 Clean Catch Urine - Preliminary Assessment/ Plan: Nephrology No dyspnea No chest pain No acute events overnight Vitals, medications, blood work and imaging reviewed in the chart NAD. MMM. NCAT. Normal Respiratory Effort. S1S2. ND Abd. No C/C/E. No rash. AAO. Normal speech. Hyponatremia -Hold HCTZ Hyperkalemia, improved Hypomagnesemia -Replete prn Hypophosphatemia -Replete prn HTN -Continue Amlodipine DM II -RISS Iron Deficiency Anemia -Monitor H&H Acute Infective Cystitis -Continue Rocephin Case reviewed with Dr. Maradiaga
== END 2024-02-06 11:11 | disposition home or self-care (01) | DRG 641 ==
LOC: ER 11:48 → ERHOLD 14:06 → 4TH 02-05 13:25
PROVIDERS: ADMIT Hospitalist; ATTEND Hospitalist
DX: E87.1 Hypo-osmolality and hyponatremia (principal); N17.9 Acute kidney failure, unspecified; N30.00 Acute cystitis without hematuria; E11.9 Type 2 diabetes mellitus without complications; I10 Essential (primary) hypertension; E87.5 Hyperkalemia; E83.42 Hypomagnesemia; D50.9 Iron deficiency anemia, unspecified; T50.0X5A Adverse effect of mineralocorticoids and their antagonists, initial encounter; T50.2X5A Adverse effect of carbonic-anhydrase inhibitors, benzothiadiazides and other diuretics, initial encounter; Z95.0 Presence of cardiac pacemaker; Z79.82 Long term (current) use of aspirin; Z79.84 Long term (current) use of oral hypoglycemic drugs; Z79.899 Other long term (current) drug therapy
CPT/HCPCS: 36415; 51702; 71045; 80048; 80053; 80076; 81001; 82728; 82947; 83540; 83735; 83930; 83935; 84100; 84300; 84439; 84443; 84466; 84484; 85025; 85610; 85730; 87077; 87086; 87088; 87186; 93005; 96365; 99285; J0696; J1650; J1815; J3475; J7030

== ENCOUNTER 2025-06-17 21:27 | Inpatient (IN) | payer OTHER ==
--- OUTSIDE RECORDS SUMMARY | 2025-06-17 21:31 | XMS REPORT | Continuity of Care Document ---
Author Name Unknown Address [address] [facility] [address] [place] [address] [facility] [place] Address [address] [facility] 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 Name Role Phone Brooklynn Gonzalez DO Primary Care Physician [phone] No, PCP Attending Clinician Unavailable Tracey Orr Attending Clinician Unavailable Brooklynn Gonzalez Attending Clinician Unavailable Matilde Dickerson DO Attending Clinician [phone] MARGARITO STAHL Attending Clinician La vailable CESARIO MART Admitting Clinician Un available Payers Payer Name Policy Type Policy Number Effective Date Expirati on Date Source [facility] [employer] [id number] 2021 00:00:00 2024 00:00:00 [facility] AARP MCR Advantage (HMO-POS) 53 [id number] 2021 00:00:00 [facility] Problems Condition Name Condition Details Condition Category Status Onset Date Resolution Date Last Treatment Date Treating Clinician Comments Source Chest pain Chest pain Disease Active 12-28 00:00: 00 [facility] 3RD DEGREE HEART BLOCK, COVID-19 3RD DEGREE HEART BLOCK, COVID-19 Active 12/23/2021 [facility] Active 12-23 02:44: 00 2022-01-12 21:44:00 Sharita Shepherd Third degree heart block Third degree heart block Disease Active 12-23 00:00: 00 [facility] COVID-19 COVID-19 [facility] Active 2022-01-12 21:44:00 Sharita Shepherd Acquired hammer toe of right foot Hammer toe of right foot Problem [facility] [id number] Paresthesi a of skin Problem [facility] [id number] Dizziness Problem Comm on [facility] [id number] Status post fall Problem [facility] [id number] Overweight Problem Com [facility] [id number] Hyperlipid emia, unspecifie d hyperlipid emia type Problem [facility] [id number] BMI 29.0-29.9, adult Problem [facility] [id number] Cataract, unspecifie d cataract type, unspecifie d laterality Problem [facility] [id number] Osteoporos is without current pathologic al fracture, unspecifie d osteoporos is type Problem [facility] [id number] Obesity (BMI 30.0-34.9) Problem [facility] [id number] Uncontroll ed type 2 diabetes mellitus with hyperglyce pam Problem Common [facility] [id number] 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, unspecifie d type Problem [facility] [id number] Iron deficiency anemia due to chronic blood loss Problem [facility] Type I diabetes mellitus without complicati on Diabetes type 1, controlled Problem [facility] Hypertensi on HTN (hypertens ion) Problem Common [facility] [id number] Primary hypertensi on Problem [facility] [id number] Age related osteoporos is, unspecifie d pathologic al fracture presence Problem [facility] [id number] Controlled type 2 diabetes mellitus without complicati on, without long-term current use of insulin Problem Common [facility] [id number] Mixed hyperlipid emia Problem [facility] CHEST PAIN, UNSPECIFIE D CHEST PAIN, UNSPECIFIE D Active [facility] Diagnosis Active 2022-01-12 21:44:00 Sharita Shepherd Social History Social Habit Start Date Stop Date Quantity Comments Source History of Tobacco Use [facility] Sex Assigned At [facility] Tobacco use and exposure 2022-01-13 00:00:00 2022-01-13 00:00:00 Smokeless tobacco non-user [facility] Alcohol intake 2022-01-13 00:00:00 2022-01-13 00:00:00 Lifetime non-drinker (finding) [facility] Smoking Status Start Date Stop Date Source Never Smoker [facility] Medications Ordered Medication Name Filled Medication Name Start Date Stop Date Current Medication? Ordering Clinician Indication Dosage Frequency Signature (SIG) Comments Components Source Vitamin D3 125 MCG (5000 UT) Vitamin D3 125 MCG (5000 UT) 07-15 00:00: 00 No 1{capsu le} QD Vitamin D3 125 MCG (5000 UT) Vitamin D3 125 MCG (5000 UT) Vitamin D3 125 MCG (5000 UT) 07-15 00:00: 00 No 1{capsu le} QD Vitamin D3 125 MCG (5000 UT) atorvastati n (Lipitor) 20 MG tablet 01-13 10:12: 45 Yes 1 tablet by mouth at bedtime [facility] Vitamin C 100 MG Vitamin C 100 MG No 1{table t} QD Vitamin C 100 MG Ferrous Gluconate 324 (38 Fe) MG Ferrous Gluconate 324 (38 Fe) MG No 1{table t} Ferrous Gluconate 324 (38 Fe) MG Magnesium 125 MG Magnesium 125 MG No 1{capsu le} QD Magnesium 125 MG Alendronate Sodium 70 MG Alendronate Sodium 70 MG No Alendronat e Sodium 70 MG amLODIPine- Atorvastati n 10-40 MG amLODIPine- Atorvastati n 10-40 MG No 1{table t} QD amLODIPine -Atorvasta tin 10-40 MG atorvastati n 20mg atorvastati n 20mg No atorvastat in 20mg metFORMIN HCl 1000 MG metFORMIN HCl 1000 MG No 1{table t_with_ a_meal} TID metFORMIN HCl 1000 MG Pantoprazol e Sodium 40 MG Pantoprazol e Sodium 40 MG No 1{table t} QD Pantoprazo le Sodium 40 MG Fish Oil 360 MG Fish Oil 360 MG No 1{capsu le} TID Fish Oil 360 MG Spironolact one 50 MG Spironolact one 50 MG No QD Spironolac tone 50 MG Minocycline HCl 50 MG Minocycline HCl 50 MG No 1{capsu le} QID Minocyclin e HCl 50 MG Alendronate Sodium 70 MG Alendronate Sodium 70 MG No Alendronat e Sodium 70 MG Glimepiride 2 MG Glimepiride 2 MG No 1{table t_with_ breakfa st_or_t he_firs t_main_ meal_of _the_da y} QD Glimepirid e 2 MG Lisinopril 40 MG Lisinopril 40 MG No 1{table t} QD Lisinopril 40 MG hydroCHLORO thiazide 50 MG hydroCHLORO thiazide 50 MG No 1{table t_in_th e_morni ng} QD hydroCHLOR Othiazide 50 MG amLODIPine Besylate 10 MG amLODIPine Besylate 10 MG No 1{table t} QD amLODIPine Besylate 10 MG Ferrous Sulfate 325 (65 Fe) MG Ferrous Sulfate 325 (65 Fe) MG No QD Ferrous Sulfate 325 (65 Fe) MG Ferrous Sulfate 325 (65 Fe) MG Ferrous Sulfate 325 (65 Fe) MG No QD Ferrous Sulfate 325 (65 Fe) MG Pantoprazol e Sodium 40 MG Pantoprazol e Sodium 40 MG No 1{table t} QD Pantoprazo le Sodium 40 MG metFORMIN HCl 1000 MG metFORMIN HCl 1000 MG No 1{table t_with_ a_meal} QD metFORMIN HCl 1000 MG metFORMIN HCl 1000 MG metFORMIN HCl 1000 MG No 1{table t_with_ a_meal} BID metFORMIN HCl 1000 MG Glimepiride 2 MG Glimepiride 2 MG No 1{table t_with_ breakfa st_or_t he_firs t_main_ meal_of _the_da y} QD Glimepirid e 2 MG Alendronate Sodium 70 MG Alendronate Sodium 70 MG No Alendronat e Sodium 70 MG Minocycline HCl 50 MG Minocycline HCl 50 MG No 1{capsu le} QID Minocyclin e HCl 50 MG Lisinopril 40 MG Lisinopril 40 MG No 1{table t} QD Lisinopril 40 MG amLODIPine Besylate 10 MG amLODIPine Besylate 10 MG No 1{table t} QD amLODIPine Besylate 10 MG Spironolact one 50 MG Spironolact one 50 MG No Spironolac tone 50 MG atorvastati n 20mg atorvastati n 20mg No atorvastat in 20mg Spironolact one 50 MG Spironolact one 50 MG No 1{table t} QD Spironolac tone 50 MG hydroCHLORO thiazide 50 MG hydroCHLORO thiazide 50 MG No 1{table t_in_th e_morni ng} QD hydroCHLOR Othiazide 50 MG Cefdinir 300 mg Cefdinir 300 mg No 1{capsu le} BID Cefdinir 300 mg Atorvastati n Calcium 40 MG Atorvastati n Calcium 40 MG No 1{table t} QD Atorvastat in Calcium 40 MG amLODIPine Besylate 10 MG amLODIPine Besylate 10 MG No 1{table t} QD amLODIPine Besylate 10 MG Alendronate Sodium 70 MG Alendronate Sodium 70 MG No Alendronat e Sodium 70 MG Lisinopril 40 MG Lisinopril 40 MG No 1{table t} QD Lisinopril 40 MG metFORMIN HCl 1000 MG metFORMIN HCl 1000 MG No 1{table t_with_ a_meal} BID metFORMIN HCl 1000 MG Spironolact one 50 MG Spironolact one 50 MG No 1{table t} QD Spironolac tone 50 MG hydroCHLORO thiazide 50 MG hydroCHLORO thiazide 50 MG No 1{table t_in_th e_morni ng} QD hydroCHLOR Othiazide 50 MG Atorvastati n Calcium 40 MG Atorvastati n Calcium 40 MG No 1{table t} QD Atorvastat in Calcium 40 MG amLODIPine Besylate 10 MG amLODIPine Besylate 10 MG No 1{table t} QD amLODIPine Besylate 10 MG Alendronate Sodium 70 MG Alendronate Sodium 70 MG No Alendronat e Sodium 70 MG Lisinopril 40 MG Lisinopril 40 MG No 1{table t} QD Lisinopril 40 MG Lisinopril 40 MG Lisinopril 40 MG No 1{table t} QD Lisinopril 40 MG metFORMIN HCl 1000 MG metFORMIN HCl 1000 MG No 1{table t_with_ a_meal} BID metFORMIN HCl 1000 MG Spironolact one 50 MG Spironolact one 50 MG No 1{table t} QD Spironolac tone 50 MG Lisinopril 40 MG Lisinopril 40 MG No 1{table t} QD Lisinopril 40 MG amLODIPine Besylate 10 MG amLODIPine Besylate 10 MG No 1{table t} QD amLODIPine Besylate 10 MG Atorvastati n Calcium 40 MG Atorvastati n Calcium 40 MG No 1{table t} QD Atorvastat in Calcium 40 MG Vitamin D3 125 MCG (5000 UT) Vitamin D3 125 MCG (5000 UT) No 1{capsu le} QD Vitamin D3 125 MCG (5000 UT) metFORMIN HCl 1000 MG metFORMIN HCl 1000 MG No 1{table t_with_ a_meal} BID metFORMIN HCl 1000 MG Alendronate Sodium 70 MG Alendronate Sodium 70 MG No Alendronat e Sodium 70 MG hydroCHLORO thiazide 50 MG hydroCHLORO thiazide 50 MG No 1{table t_in e_morni ng} QD hydroCHLOR Othiazide 50 MG Spironolact one 50 MG Spironolact one 50 MG No 1{table t} QD Spironolac tone 50 MG Lisinopril 40 MG Lisinopril 40 MG No 1{table t} QD Lisinopril 40 MG amLODIPine Besylate 10 MG amLODIPine Besylate 10 MG No 1{table t} QD amLODIPine Besylate 10 MG Atorvastati n Calcium 40 MG Atorvastati n Calcium 40 MG No 1{table t} QD Atorvastat in Calcium 40 MG Vitamin D3 125 MCG (5000 UT) Vitamin D3 125 MCG (5000 UT) No 1{capsu le} QD Vitamin D3 125 MCG (5000 UT) metFORMIN HCl 1000 MG metFORMIN HCl 1000 MG No 1{table t_with_ a_meal} BID metFORMIN HCl 1000 MG Alendronate Sodium 70 MG Alendronate Sodium 70 MG No Alendronat e Sodium 70 MG hydroCHLORO thiazide 50 MG hydroCHLORO thiazide 50 MG No 1{table t_in e_morni ng} QD hydroCHLOR Othiazide 50 MG hydroCHLORO thiazide 50 MG hydroCHLORO thiazide 50 MG No 1{table t_in e_morni ng} QD hydroCHLOR Othiazide 50 MG metFORMIN HCl 1000 MG metFORMIN HCl 1000 MG No 1{table t_with_ a_meal} BID metFORMIN HCl 1000 MG Atorvastati n Calcium 40 MG Atorvastati n Calcium 40 MG No Atorvastat in Calcium 40 MG Alendronate Sodium 70 MG Alendronate Sodium 70 MG No Alendronat e Sodium 70 MG Glimepiride 2 MG Glimepiride 2 MG No 1{table t_with_ breakfa st_or_ he_firs t_main_ meal_of _the_da y} QD Glimepirid e 2 MG Vitamin D3 125 MCG (5000 UT) Vitamin D3 125 MCG (5000 UT) No 1{capsu le} QD Vitamin D3 125 MCG (5000 UT) Lisinopril 40 MG Lisinopril 40 MG No 1{table t} QD Lisinopril 40 MG amLODIPine Besylate 10 MG amLODIPine Besylate 10 MG No 1{table t} QD amLODIPine Besylate 10 MG Spironolact one 50 MG Spironolact one 50 MG No 1{table t} QD Spironolac tone 50 MG hydroCHLORO thiazide 50 MG hydroCHLORO thiazide 50 MG No 1{table t_in e_morni ng} QD hydroCHLOR Othiazide 50 MG metFORMIN HCl 1000 MG metFORMIN HCl 1000 MG No 1{table t_with_ a_meal} BID metFORMIN HCl 1000 MG Atorvastati n Calcium 40 MG Atorvastati n Calcium 40 MG No Atorvastat in Calcium 40 MG Alendronate Sodium 70 MG Alendronate Sodium 70 MG No Alendronat e Sodium 70 MG Glimepiride 2 MG Glimepiride 2 MG No 1{table t_with_ breakfa st_or_ he_firs t_main_ meal_of _the_da y} QD Glimepirid e 2 MG Vitamin D3 125 MCG (5000 UT) Vitamin D3 125 MCG (5000 UT) No 1{capsu le} QD Vitamin D3 125 MCG (5000 UT) Lisinopril 40 MG Lisinopril 40 MG No 1{table t} QD Lisinopril 40 MG amLODIPine Besylate 10 MG amLODIPine Besylate 10 MG No 1{table t} QD amLODIPine Besylate 10 MG Spironolact one 50 MG Spironolact one 50 MG No 1{table t} QD Spironolac tone 50 MG hydroCHLORO thiazide 50 MG hydroCHLORO thiazide 50 MG No 1{table t_in e_morni ng} QD hydroCHLOR Othiazide 50 MG metFORMIN HCl 1000 MG metFORMIN HCl 1000 MG No 1{table t_with_ a_meal} BID metFORMIN HCl 1000 MG Atorvastati n Calcium 40 MG Atorvastati n Calcium 40 MG No Atorvastat in Calcium 40 MG Alendronate Sodium 70 MG Alendronate Sodium 70 MG No Alendronat e Sodium 70 MG Glimepiride 2 MG Glimepiride 2 MG No 1{table t_with_ breakfa st_or_t he_firs t_main_ meal_of _the_da y} QD Glimepirid e 2 MG Vitamin D3 125 MCG (5000 UT) Vitamin D3 125 MCG (5000 UT) No 1{capsu le} QD Vitamin D3 125 MCG (5000 UT) Lisinopril 40 MG Lisinopril 40 MG No 1{table t} QD Lisinopril 40 MG amLODIPine Besylate 10 MG amLODIPine Besylate 10 MG No 1{table t} QD amLODIPine Besylate 10 MG Spironolact one 50 MG Spironolact one 50 MG No 1{table t} QD Spironolac tone 50 MG hydroCHLORO thiazide 50 MG hydroCHLORO thiazide 50 MG No 1{table t_in e_morni ng} QD hydroCHLOR Othiazide 50 MG metFORMIN HCl 1000 MG metFORMIN HCl 1000 MG No 1{table t_with_ a_meal} BID metFORMIN HCl 1000 MG Atorvastati n Calcium 40 MG Atorvastati n Calcium 40 MG No Atorvastat in Calcium 40 MG Alendronate Sodium 70 MG Alendronate Sodium 70 MG No Alendronat e Sodium 70 MG Glimepiride 2 MG Glimepiride 2 MG No 1{table t_with_ breakfa st_or_t he_firs t_main_ meal_of _the_da y} QD Glimepirid e 2 MG Vitamin D3 125 MCG (5000 UT) Vitamin D3 125 MCG (5000 UT) No 1{capsu le} QD Vitamin D3 125 MCG (5000 UT) Lisinopril 40 MG Lisinopril 40 MG No 1{table t} QD Lisinopril 40 MG amLODIPine Besylate 10 MG amLODIPine Besylate 10 MG No 1{table t} QD amLODIPine Besylate 10 MG Spironolact one 50 MG Spironolact one 50 MG No 1{table t} QD Spironolac tone 50 MG hydroCHLORO thiazide 50 MG hydroCHLORO thiazide 50 MG No 1{table t_in e_morni ng} QD hydroCHLOR Othiazide 50 MG metFORMIN HCl 1000 MG metFORMIN HCl 1000 MG No 1{table t_with_ a_meal} BID metFORMIN HCl 1000 MG Atorvastati n Calcium 40 MG Atorvastati n Calcium 40 MG No Atorvastat in Calcium 40 MG Alendronate Sodium 70 MG Alendronate Sodium 70 MG No Alendronat e Sodium 70 MG Glimepiride 2 MG Glimepiride 2 MG No 1{table t_with_ breakfa st_or_t he_firs t_main_ meal_of _the_da y} QD Glimepirid e 2 MG Vitamin D3 125 MCG (5000 UT) Vitamin D3 125 MCG (5000 UT) No 1{capsu le} QD Vitamin D3 125 MCG (5000 UT) Lisinopril 40 MG Lisinopril 40 MG No 1{table t} QD Lisinopril 40 MG amLODIPine Besylate 10 MG amLODIPine Besylate 10 MG No 1{table t} QD amLODIPine Besylate 10 MG Spironolact one 50 MG Spironolact one 50 MG No 1{table t} QD Spironolac tone 50 MG hydroCHLORO thiazide 50 MG hydroCHLORO thiazide 50 MG No 1{table t_in e_morni ng} QD hydroCHLOR Othiazide 50 MG metFORMIN HCl 1000 MG metFORMIN HCl 1000 MG No 1{table t_with_ a_meal} BID metFORMIN HCl 1000 MG Atorvastati n Calcium 40 MG Atorvastati n Calcium 40 MG No Atorvastat in Calcium 40 MG Alendronate Sodium 70 MG Alendronate Sodium 70 MG No Alendronat e Sodium 70 MG Glimepiride 2 MG Glimepiride 2 MG No 1{table t_with_ breakfa st_or_t he_firs t_main_ meal_of _the_da y} QD Glimepirid e 2 MG Vitamin D3 125 MCG (5000 UT) Vitamin D3 125 MCG (5000 UT) No 1{capsu le} QD Vitamin D3 125 MCG (5000 UT) Lisinopril 40 MG Lisinopril 40 MG No 1{table t} QD Lisinopril 40 MG amLODIPine Besylate 10 MG amLODIPine Besylate 10 MG No 1{table t} QD amLODIPine Besylate 10 MG Spironolact one 50 MG Spironolact one 50 MG No 1{table t} QD Spironolac tone 50 MG metFORMIN HCl 1000 MG metFORMIN HCl 1000 MG No 1{table t_with_ a_meal} TID metFORMIN HCl 1000 MG hydroCHLORO thiazide 50 MG hydroCHLORO thiazide 50 MG No 1{table t_in e_morni ng} QD hydroCHLOR Othiazide 50 MG metFORMIN HCl 1000 MG metFORMIN HCl 1000 MG No 1{table t_with_ a_meal} BID metFORMIN HCl 1000 MG Atorvastati n Calcium 40 MG Atorvastati n Calcium 40 MG No Atorvastat in Calcium 40 MG Alendronate Sodium 70 MG Alendronate Sodium 70 MG No Alendronat e Sodium 70 MG Glimepiride 2 MG Glimepiride 2 MG No 1{table t_with_ breakfa st_or_t he_firs t_main_ meal_of _the_da y} QD Glimepirid e 2 MG Vitamin D3 125 MCG (5000 UT) Vitamin D3 125 MCG (5000 UT) No 1{capsu le} QD Vitamin D3 125 MCG (5000 UT) atorvastati n 20mg atorvastati n 20mg No atorvastat in 20mg Lisinopril 40 MG Lisinopril 40 MG No 1{table t} QD Lisinopril 40 MG amLODIPine Besylate 10 MG amLODIPine Besylate 10 MG No 1{table t} QD amLODIPine Besylate 10 MG Spironolact one 50 MG Spironolact one 50 MG No 1{table t} QD Spironolac tone 50 MG hydroCHLORO thiazide 50 MG hydroCHLORO thiazide 50 MG No 1{table t_in e_morni ng} QD hydroCHLOR Othiazide 50 MG metFORMIN HCl 1000 MG metFORMIN HCl 1000 MG No 1{table t_with_ a_meal} BID metFORMIN HCl 1000 MG Atorvastati n Calcium 40 MG Atorvastati n Calcium 40 MG No Atorvastat in Calcium 40 MG Alendronate Sodium 70 MG Alendronate Sodium 70 MG No Alendronat e Sodium 70 MG Glimepiride 2 MG Glimepiride 2 MG No 1{table t_with_ breakfa st_or_t he_firs t_main_ meal_of _the_da y} QD Glimepirid e 2 MG Spironolact one 50 MG Spironolact one 50 MG No QD Spironolac tone 50 MG Vitamin D3 125 MCG (5000 UT) Vitamin D3 125 MCG (5000 UT) No 1{capsu le} QD Vitamin D3 125 MCG (5000 UT) Lisinopril 40 MG Lisinopril 40 MG No 1{table t} QD Lisinopril 40 MG amLODIPine Besylate 10 MG amLODIPine Besylate 10 MG No 1{table t} QD amLODIPine Besylate 10 MG Spironolact one 50 MG Spironolact one 50 MG No 1{table t} QD Spironolac tone 50 MG metFORMIN HCl 1000 MG metFORMIN HCl 1000 MG No 1{table t_with_ a_meal} BID metFORMIN HCl 1000 MG Vitamin D3 125 MCG (5000 UT) Vitamin D3 125 MCG (5000 UT) No 1{capsu le} QD Vitamin D3 125 MCG (5000 UT) Alendronate Sodium 70 MG Alendronate Sodium 70 MG No Alendronat e Sodium 70 MG Lisinopril 40 MG Lisinopril 40 MG No 1{table t} QD Lisinopril 40 MG hydroCHLORO thiazide 50 MG hydroCHLORO thiazide 50 MG No 1{table t_in e_morni ng} QD hydroCHLOR Othiazide 50 MG Atorvastati n Calcium 40 MG Atorvastati n Calcium 40 MG No 1{table t} QD Atorvastat in Calcium 40 MG amLODIPine Besylate 10 MG amLODIPine Besylate 10 MG No 1{table t} QD amLODIPine Besylate 10 MG Alendronate Sodium 70 MG Alendronate Sodium 70 MG No Alendronat e Sodium 70 MG Spironolact one 50 MG Spironolact one 50 MG No 1{table t} QD Spironolac tone 50 MG Lisinopril 40 MG Lisinopril 40 MG No 1{table t} QD Lisinopril 40 MG hydroCHLORO thiazide 50 MG hydroCHLORO thiazide 50 MG No 1{table t_in e_morni ng} QD hydroCHLOR Othiazide 50 MG metFORMIN HCl 1000 MG metFORMIN HCl 1000 MG No 1{table t_with_ a_meal} BID metFORMIN HCl 1000 MG Vitamin D3 125 MCG (5000 UT) Vitamin D3 125 MCG (5000 UT) No 1{capsu le} QD Vitamin D3 125 MCG (5000 UT) Lisinopril 40 MG Lisinopril 40 MG No 1{table t} QD Lisinopril 40 MG hydroCHLORO thiazide 50 MG hydroCHLORO thiazide 50 MG No 1{table t_in_th e_morni ng} QD hydroCHLOR Othiazide 50 MG Glimepiride 2 MG Glimepiride 2 MG No 1{table t_with_ breakfa st_or_t he_firs t_main_ meal_of _the_da y} QD Glimepirid e 2 MG Atorvastati n Calcium 40 MG Atorvastati n Calcium 40 MG No 1{table t} QD Atorvastat in Calcium 40 MG amLODIPine Besylate 10 MG amLODIPine Besylate 10 MG No 1{table t} QD amLODIPine Besylate 10 MG Alendronate Sodium 70 MG Alendronate Sodium 70 MG No Alendronat e Sodium 70 MG Spironolact one 50 MG Spironolact one 50 MG No 1{table t} QD Spironolac tone 50 MG Pantoprazol e Sodium 40 MG Pantoprazol e Sodium 40 MG No 1{table t} QD Pantoprazo le Sodium 40 MG Minocycline HCl 50 MG Minocycline HCl 50 MG No 1{capsu le} QID Minocyclin e HCl 50 MG Vital Signs Vital Name Observation Time Observation Value Comments S ource height 2024-01-02 14:40:00 64 [in_i] Commo n [facility] weight 2024-01-02 14:40:00 115.4 [lb_av] Co mmon [facility] temperature 2024-01-02 14:40:00 97.2 [degF] Com mon [facility] bmi 2024-01-02 14:40:00 19.81 kg/m2 Comm on [facility] oximetry 2024-01-02 14:40:00 98 % Commo n [facility] respiratory rate 2024-01-02 14:40:00 16 /min Common [facility] blood pressure systolic 2024-01-02 14:40:00 124 mm[Hg] [facility] blood pressure diastolic 2024-01-02 14:40:00 72 mm[Hg] [facility] height 2024-01-02 14:00:00 64 [in_i] Commo n [facility] weight 2024-01-02 14:00:00 115.4 [lb_av] Co mmon [facility] temperature 2024-01-02 14:00:00 97.2 [degF] Com mon [facility] bmi 2024-01-02 14:00:00 19.81 kg/m2 Comm on [facility] oximetry 2024-01-02 14:00:00 98 % Commo n [facility] respiratory rate 2024-01-02 14:00:00 16 /min [facility] blood pressure systolic 2024-01-02 14:00:00 124 mm[Hg] [facility] blood pressure diastolic 2024-01-02 14:00:00 72 mm[Hg] [facility] height 2023-09-19 10:40:00 64 [in_i] Commo n [facility] weight 2023-09-19 10:40:00 115.4 [lb_av] Co mmon [facility] temperature 2023-09-19 10:40:00 97.1 [degF] Com mon [facility] bmi 2023-09-19 10:40:00 19.81 kg/m2 Comm on [facility] oximetry 2023-09-19 10:40:00 99 % Commo n [facility] respiratory rate 2023-09-19 10:40:00 16 /min [facility] blood pressure systolic 2023-09-19 10:40:00 137 mm[Hg] [facility] blood pressure diastolic 2023-09-19 10:40:00 66 mm[Hg] Common [facility] height 2023-06-13 11:20:00 64 [in_i] Commo n [facility] weight 2023-06-13 11:20:00 120.8 [lb_av] Co mmon [facility] temperature 2023-06-13 11:20:00 97.2 [degF] Com [facility] bmi 2023-06-13 11:20:00 20.73 kg/m2 Comm on [facility] oximetry 2023-06-13 11:20:00 98 % Commo n [facility] respiratory rate 2023-06-13 11:20:00 16 /min [facility] blood pressure systolic 2023-06-13 11:20:00 124 mm[Hg] Common [facility] blood pressure diastolic 2023-06-13 11:20:00 62 mm[Hg] Common [facility] height 2023-03-09 10:20:00 64 [in_i] Commo n [facility] weight 2023-03-09 10:20:00 130 [lb_av] Comm on [facility] temperature 2023-03-09 10:20:00 97.8 [degF] Com [facility] bmi 2023-03-09 10:20:00 22.31 kg/m2 Comm on [facility] oximetry 2023-03-09 10:20:00 99 % Commo n [facility] respiratory rate 2023-03-09 10:20:00 16 /min Common [facility] blood pressure systolic 2023-03-09 10:20:00 138 mm[Hg] [facility] blood pressure diastolic 2023-03-09 10:20:00 78 mm[Hg] Common [facility] height 2023-02-21 14:40:00 64 [in_i] Commo n [facility] weight 2023-02-21 14:40:00 129 [lb_av] Comm on [facility] temperature 2023-02-21 14:40:00 97.1 [degF] Com mon [facility] bmi 2023-02-21 14:40:00 22.14 kg/m2 Comm on [facility] oximetry 2023-02-21 14:40:00 98 % Commo n [facility] respiratory rate 2023-02-21 14:40:00 16 /min Common [facility] blood pressure systolic 2023-02-21 14:40:00 130 mm[Hg] [facility] blood pressure diastolic 2023-02-21 14:40:00 68 mm[Hg] Common [facility] height 2023-02-21 15:00:00 64 [in_i] Commo n [facility] weight 2023-02-21 15:00:00 129 [lb_av] Comm on [facility] temperature 2023-02-21 15:00:00 97.1 [degF] Com [facility] bmi 2023-02-21 15:00:00 22.14 kg/m2 Comm on [facility] oximetry 2023-02-21 15:00:00 98 % Commo n [facility] respiratory rate 2023-02-21 15:00:00 16 /min Common [facility] blood pressure systolic 2023-02-21 15:00:00 130 mm[Hg] Common Spiri t [facility] blood pressure diastolic 2023-02-21 15:00:00 68 mm[Hg] Common [facility] height 2022-10-14 13:40:00 64 [in_i] Commo n [facility] weight 2022-10-14 13:40:00 133.0 [lb_av] Co mmon [facility] temperature 2022-10-14 13:40:00 98.0 [degF] Com [facility] bmi 2022-10-14 13:40:00 22.83 kg/m2 Comm on [facility] oximetry 2022-10-14 13:40:00 100 % Commo n [facility] respiratory rate 2022-10-14 13:40:00 17 /min [facility] blood pressure systolic 2022-10-14 13:40:00 138 mm[Hg] Common [facility] blood pressure diastolic 2022-10-14 13:40:00 65 mm[Hg] [facility] height 2022-07-16 13:00:00 64 [in_i] Commo n [facility] weight 2022-07-16 13:00:00 133.4 [lb_av] Co [facility] temperature 2022-07-16 13:00:00 98.0 [degF] Com [facility] bmi 2022-07-16 13:00:00 22.90 kg/m2 Comm on [facility] oximetry 2022-07-16 13:00:00 95 % Commo n [facility] respiratory rate 2022-07-16 13:00:00 16 /min [facility] blood pressure systolic 2022-07-16 13:00:00 132 mm[Hg] [facility] blood pressure diastolic 2022-07-16 13:00:00 58 mm[Hg] [facility] height 2022-03-29 13:00:00 64 [in_i] Commo n [facility] weight 2022-03-29 13:00:00 127.0 [lb_av] Co [facility] temperature 2022-03-29 13:00:00 97.5 [degF] Com [facility] bmi 2022-03-29 13:00:00 21.8 kg/m2 Commo n [facility] oximetry 2022-03-29 13:00:00 100 % Commo n [facility] respiratory rate 2022-03-29 13:00:00 18 /min Common [facility] blood pressure systolic 2022-03-29 13:00:00 139 mm[Hg] Common Spiri t [facility] blood pressure diastolic 2022-03-29 13:00:00 70 mm[Hg] Common [facility] height 2022-03-29 14:00:00 64 [in_i] Commo n [facility] weight 2022-03-29 14:00:00 127.0 [lb_av] Co mmon [facility] temperature 2022-03-29 14:00:00 97.5 [degF] Com [facility] bmi 2022-03-29 14:00:00 21.8 kg/m2 Commo n [facility] oximetry 2022-03-29 14:00:00 100 % Commo n [facility] respiratory rate 2022-03-29 14:00:00 18 /min [facility] blood pressure systolic 2022-03-29 14:00:00 139 mm[Hg] Common [facility] blood pressure diastolic 2022-03-29 14:00:00 70 mm[Hg] Common [facility] height 2022-01-19 13:20:00 64 [in_i] Commo n [facility] weight 2022-01-19 13:20:00 127.4 [lb_av] Co mmon [facility] temperature 2022-01-19 13:20:00 98.0 [degF] Com mon [facility] bmi 2022-01-19 13:20:00 21.87 kg/m2 Comm on [facility] oximetry 2022-01-19 13:20:00 99 % Commo n [facility] respiratory rate 2022-01-19 13:20:00 18 /min Common [facility] blood pressure systolic 2022-01-19 13:20:00 132 mm[Hg] Common [facility] blood pressure diastolic 2022-01-19 13:20:00 69 mm[Hg] [facility] Systolic blood pressure 2022-01-13 16:08:00 148 mm[Hg] [facility] Diastolic blood pressure 2022-01-13 16:08:00 72 mm[Hg] [facility] rate 2022-01-13 16:08:00 73 /min [facility] Body height 2022-01-13 16:08:00 152.4 cm [facility] weight 2022-01-13 16:08:00 58.968 [facility] BMI 2022-01-13 16:08:00 25.39 kg/m2 [facility] height 2021-12-21 15:20:00 64 [in_i] Commo n [facility] weight 2021-12-21 15:20:00 126 [lb_av] Comm on [facility] temperature 2021-12-21 15:20:00 97.9 [degF] Com mon [facility] bmi 2021-12-21 15:20:00 21.63 kg/m2 Comm on [facility] oximetry 2021-12-21 15:20:00 97 % Commo n [facility] respiratory rate 2021-12-21 15:20:00 22 /min [facility] blood pressure systolic 2021-12-21 15:20:00 150 mm[Hg] [facility] blood pressure diastolic 2021-12-21 15:20:00 72 mm[Hg] [facility] Procedures Procedure Date / Time Performed Performing Clinicia n Source ECG 12-LEAD 2022-01-13 16:13:00 Matilde Dickerson [facility] Encounters Start Date/Time End Date/Time Encounter Type Admission Type Attending Clinicians Care Facility Care Department Encounter ID Source 2024-05-04 10:16:02 Outpatient No, PCP CLS CLS [id number] [facility] 2023-06-10 08:41:00 Outpatient Tracey Orr STLMLC STLMLC [id number] [facility] 2023-03-18 14:37:34 Outpatient [facility] [id number] [facility] 2023-02-21 14:27:00 Outpatient Tracey Orr STLMLC STLMLC [id number] [facility] 2023-02-18 13:42:00 Outpatient Tracey Orr STLMLC STLMLC [id number] [facility] 2022-12-19 13:08:57 Outpatient [facility] [id number] [facility] 2022-10-27 16:14:01 Outpatient Gonzalez, Na STLMLC STLMLC [id number] [facility] 2022-10-11 14:45:02 Outpatient Gonzalez, Na STLMLC STLMLC [id number] [facility] 2022-07-14 09:16:01 Outpatient Gonzalez, Na STLMLC STLMLC [id number] [facility] 2022-06-28 10:48:02 Outpatient Gonzalez, Na STLMLC STLMLC [id number] [facility] 2022-06-25 09:27:02 Outpatient Gonzalez, Na STLMLC STLMLC [id number] [facility] 2022-05-28 15:44:30 Outpatient [facility] [id number] [facility] 2022-03-25 09:18:18 Outpatient Gonzalez, Na STLMLC STLMLC [id number] [facility] 2022-01-15 16:48:01 Outpatient Gonzalez, Na STLMLC STLMLC [id number] [facility] 2021-12-25 14:38:02 Outpatient Gonzalez, Na STLMLC STLMLC [id number] [facility] 2021-12-21 14:41:02 Outpatient Brooklynn Gonzalez STLMLC STLMLC [id number] [facility] 2024-05-29 00:00:00 2024-05-29 00:00:00 Office Visit- Est Pt.- Level 3 CLS CLS [id number] [facility] 2024-05-04 00:00:00 2024-05-04 00:00:00 Office Visit- New Pt.- Level 3 CLS CLS [id number] [facility] 2024-01-02 00:00:00 2024-01-02 00:00:00 SUB ANNUAL [facility] WELLNESS VISIT STLMLC STLMLC [id number] [facility] 2024-01-02 00:00:00 2024-01-02 00:00:00 OFFICE VISIT ESTAB PT LEVEL 4 STLMLC STLMLC [id number] [facility] 2023-11-23 00:00:00 2023-11-23 00:00:00 (TEL) STLMLC STLMLC [id number] [facility] 2023-10-13 00:00:00 2023-10-13 00:00:00 (TEL) STLMLC STLMLC [id number] [facility] 2023-09-19 00:00:00 2023-09-19 00:00:00 OFFICE VISIT ESTAB PT LEVEL 4 STLMLC STLMLC [id number] [facility] 2023-08-01 00:00:00 2023-08-01 00:00:00 (TEL) STLMLC STLMLC [id number] [facility] 2023-07-13 00:00:00 2023-07-13 00:00:00 (TEL) STLMLC STLMLC [id number] [facility] 2023-06-29 00:00:00 2023-06-29 00:00:00 (TEL) STLMLC STLMLC [id number] [facility] 2023-06-28 00:00:00 2023-06-28 00:00:00 (TEL) STLMLC STLMLC [id number] [facility] 2023-06-13 00:00:00 2023-06-13 00:00:00 OFFICE VISIT ESTAB PT LEVEL 4 STLMLC STLMLC [id number] [facility] 2023-03-24 00:00:00 2023-03-24 00:00:00 (TEL) STLMLC STLMLC [id number] [facility] 2023-03-09 00:00:00 2023-03-09 00:00:00 OFFICE VISIT ESTAB PT LEVEL 4 STLMLC STLMLC [id number] [facility] 2023-02-21 00:00:00 2023-02-21 00:00:00 OFFICE VISIT ESTAB PT LEVEL 4 STLMLC STLMLC [id number] [facility] 2023-02-21 00:00:00 2023-02-21 00:00:00 SUB ANNUAL MCR WELLNESS VISIT STLMLC STLMLC [id number] [facility] 2022-10-14 00:00:00 2022-10-14 00:00:00 OFFICE VISIT ESTAB PT LEVEL 4 STLMLC STLMLC [id number] [facility] 2022-07-19 00:00:00 2022-07-19 00:00:00 (TEL) STLMLC STLMLC [id number] [facility] 2022-07-16 00:00:00 2022-07-16 00:00:00 OFFICE VISIT ESTAB PT LEVEL 4 STLMLC STLMLC [id number] [facility] 2022-04-16 00:00:00 2022-04-16 00:00:00 (TEL) STLMLC STLMLC [id number] [facility] 2022-03-29 00:00:00 2022-03-29 00:00:00 SUB ANNUAL MCR WELLNESS VISIT STLMLC STLMLC [id number] [facility] 2022-03-29 00:00:2022-03-29 00:00:00 OFFICE VISIT EST [facility] 3 [facility] [id number] [facility] 2022-01-19 00:00:00 2022-01-19 00:00:00 OFFICE VISIT EST PT LEVEL 3 STLMLC STLC [id number] [facility] 2022-01-13 10:15:00 2022-01-13 10:35:32 Office Visit Matilde Dickerson [facility] 2 [id number] [facility] 2021-12-23 07:45:00 2021-12-24 15:38:00 Inpatient U MARGARITO STAHL [facility] [id number] [facility] 2021-12-21 00:00:00 2021-12-21 00:00:00 OFFICE VISIT NEW [facility] [id number] [facility] Results Test Description Test Time Test Comments Results Result Co mments Source CBC W/AUTO [id number] 00:00:00* Test Item Value Reference Range Interpretation Comme nts NUCLEATED RBCS (test code = 93910-6) 0.0 /100 WBC'S See_Comment [Automated messa ge] The system which generated this result transmitted reference range: 0.0 /100 WBC'S. The reference range was not used to interpret this result as normal/abnormal. ABSOLUTE EOSINOPHILS (test code = 61095-1) 0.18 K/UL See_Comment [Automated messa ge] The system which generated this result transmitted reference range: 0.00-0.50 K/UL. The reference range was not used to interpret this result as normal/abnormal. ABSOLUTE LYMPHOCYTES (test code = 98040-3) 1.34 K/UL See_Comment [Automated messa ge] The system which generated this result transmitted reference range: 1.00-4.00 K/UL. The reference range was not used to interpret this result as normal/abnormal. ABSOLUTE MONOCYTES (test code = 34922-2) 0.57 K/UL See_Comment [Automated messa ge] The system which generated this result transmitted reference range: 0.20-1.00 K/UL. The reference range was not used to interpret this result as normal/abnormal. ABSOLUTE NEUTROPHILS (test code = 31319-1) 5.05 K/UL See_Comment [Automated messa ge] The system which generated this result transmitted reference range: 1.50-7.50 K/UL. The reference range was not used to interpret this result as normal/abnormal. BASOPHILS (test code = 02283-5) 0.3 % EOSINOPHILS (test code = 19052-7) 2.5 % HEMATOCRIT (test code = 21483-5) 30.2 % See_Comment L [Automated messa ge] The system which generated this result transmitted reference range: 34.0-45.0 %. The reference range was not used to interpret this result as normal/abnormal. HEMOGLOBIN (test code = 718-7) 10.0 G/DL See_Comment L [Automated messa ge] The system which generated this result transmitted reference range: 11.5-15.5 G/DL. The reference range was not used to interpret this result as normal/abnormal. LYMPHOCYTES (test code = 72995-4) 18.6 % MCH (test code = 62600-8) 31.7 PG See_Comment [Automated messa ge] The system which generated this result transmitted reference range: 25.0-33.0 PG. The reference range was not used to interpret this result as normal/abnormal. MCHC (test code = 51630-6) 33.1 G/DL See_Comment [Automated messa ge] The system which generated this result transmitted reference range: 31.0-36.0 G/DL. The reference range was not used to interpret this result as normal/abnormal. MCV (test code = 85872-7) 95.9 fL See_Comment [Automated messa ge] The system which generated this result transmitted reference range: 80.0-99.0 fL. The reference range was not used to interpret this result as normal/abnormal. MONOCYTES (test code = 43837-0) 7.9 % NEUTROPHILS (test code = 42929-6) 69.9 % PLATELET COUNT (test code = 37137-7) 312 K/UL See_Comment [Automated messa ge] The system which generated this result transmitted reference range: 130-400 K/UL. The reference range was not used to interpret this result as normal/abnormal. RBC (test code = 25732-8) 3.15 M/UL See_Comment L [Automated [employer] NEURONIX] The system which generated this result transmitted reference range: 3.80-5.40 M/UL. The reference range was not used to interpret this result as normal/abnormal. RDW (test code = 45694-8) 12.7 % See_Comment [Automated [employer] NEURONIX] The system which generated this result transmitted reference range: 11.5-15.0 %. The reference range was not used to interpret this result as normal/abnormal. WBC (test code = 65370-8) 7.2 K/UL See_Comment [Automated [employer] NEURONIX] The system which generated this result transmitted reference range: 3.5-11.0 K/UL. The reference range was not used to interpret this result as normal/abnormal. ECG 12 [id number] 16:13:00* Test Item Value Reference Range Interpretation Comme nts Lab Interpretation (test cod e = 63393-5) Normal [facility]
[2025-06-17 22:25] LABS: Absolute Lymphocytes (CBC) 1.2 K/uL (0.7-4.9); Hematocrit 28.2 % (36.0-45.0); Hemoglobin 10.1 g/dL (12.0-15.0); MCH 32.6 pg (27.0-35.0); MCHC 36.0 g/dL (32.0-36.0); MCV 90.4 fL (80-100); MPV 6.6 fL (7.6-11.3); Nucleated RBC Absolute Count 0.0 (0-0); Nucleated Red Blood Cells % 0.0 % (0-0); RBC Red Blood Cell Count 3.11 M/uL (3.86-4.86); White Blood Count 8.90 thou/uL (4.3-10.9)
[2025-06-17 22:28] LABS: PT Prothrombin Time 13.1 SECONDS (10-13.0); Protime INR 1.16
[2025-06-17 22:45] LABS: ALT/SGPT 24.0 U/L (13-56); AST/SGOT 20.0 U/L (15-37); Albumin 3.7 g/dL (3.4-5.0); Albumin/Globulin Ratio 1.2 (1.1-1.8); Alkaline Phosphatase 53.0 U/L (45-117); Anion Gap 16.1 mEq/L (5.0-15.0); BUN Blood Urea Nitrogen 18.0 mg/dL (7-18); Bilirubin Indirect, Calculated 0.3 mg/dL (0.2-0.8); Globulin 3.2 g/dL (2.3-3.5); Glucose Level 130.0 mg/dL (74-106); Magnesium 1.2 mg/dL (1.6-2.4); NT PRO-BNP 1025.0 pg/mL (<450); Potassium 4.1 mEq/L (3.5-5.1); Troponin High Sensitivity 15.2 pg/mL (<58.9)
[2025-06-17] MEDS ORDERED: DIAZEPAM 2 MG TABLET ONE (22:48)
[2025-06-17 23:16] LABS: UR POTASSIUM 52.0 mmol/L (20-40); UR SODIUM 56.0 mmol/L (27-287)
[2025-06-18] MEDS ORDERED: ACETAMINOPHEN 325 MG TABLET PO PRN (01:31)
[2025-06-18] MEDS ORDERED: ZOLPIDEM TARTRATE 5 MG TABLET PO PRN (01:31)
[2025-06-18] MEDS ORDERED: ONDANSETRON 4 MG/2 ML VIAL IV PRN (01:31)
[2025-06-18] MEDS ORDERED: MAGNESIUM HYDROXIDE 8% 30 ML PO PRN (01:31)
[2025-06-18] MEDS: NA CHLORIDE 3% 500 ML IV SCH (01:31)
[2025-06-18] MEDS ORDERED: HYDROCODONE/APAP 5/325 MG TAB PO PRN (01:31)
[2025-06-18] MEDS ORDERED: ALBUTEROL 2.5 MG/3 ML NEB SOL NEB PRN (01:31)
[2025-06-18] MEDS ORDERED: DIAZEPAM 2 MG TABLET ONE (01:37)
[2025-06-18] MEDS: DIAZEPAM 2 MG TABLET PO PRN (01:39)
[2025-06-18 02:40] VITALS: BMI 21.7
--- NOTE | 2025-06-18 04:53 | EDPHYS ---
Physician Documentation [facility] Name: Ynes Jacob Age: 79 yrs Sex: Female : 1945 Arrival Date: 06/17/2025 Time: 21:27 Bed 15 Private MD: ED Physician Francesco Brizuela HPI: 06/17 21:42 This 79 yrs old Female presents to ER via Ambulatory with complaints of sp4 Abnormal Lab Results. 06/18 04:51 Patient is a very pleasant 79-year-old female with history of anemia, diabetes type 2 sp4 and hypertension who was sent here by her primary care physician for hyponatremia. On routine labs patient was found to have sodium of 110. Patient reports bilateral hand numbness but denied seizures, hallucinations, or generalized weakness. Historical: - Allergies: 06/17 21:41 No Known Allergies; cp4 - Home Meds: 06/18 20:59 olmesartan-hydrochlorothiazide 40-25 mg oral tablet 1 tab daily [Active]; metformin ss12 1,000 mg Oral Tablet, Extended Release 24 hr 1 tab BID for type 2 diabetes mellitus [Active]; atorvastatin 20 mg oral tablet 1 tab every evening [Active]; - PMHx: 06/17 21:41 Anemia; diabetes mellitus; Hypertensive disorder; cp4 - PSHx: 21:41 section; pacemaker (an); cp4 - Immunization history:: Adult Immunizations up to date. - Infectious Disease History:: Denies. - Social history:: Smoking status: Patient denies any tobacco usage or history of. - Family history:: not pertinent. ROS: 06/18 04:54 Constitutional: Negative for fever, chills, and weight loss, positive for bilateral sp4 hand numbness, All other systems are negative, Exam: 04:54 Constitutional: This is a well developed, well nourished patient who is awake, alert, sp4 and in no acute distress. Head/Face: Normocephalic, atraumatic. Eyes: Pupils equal round and reactive to light, extra-ocular motions intact. Lids and lashes normal. Conjunctiva and sclera are not injected. Cornea within normal limits. Periorbital areas with no swelling, redness, or edema. ENT: Nares patent. No nasal discharge, no septal abnormalities noted. Tympanic membranes are normal and external auditory canals are clear. Oropharynx with no redness, swelling, or masses, exudates, or evidence of obstruction, uvula midline. Mucous membranes moist. Neck: Trachea midline, no thyromegaly or masses palpated, and no cervical lymphadenopathy. Supple, full range of motion without nuchal rigidity, or vertebral point tenderness. Chest/axilla: Normal chest wall appearance and motion. Nontender with no deformity. No lesions are appreciated. Pacemaker present Cardiovascular: Regular rate and rhythm with a normal S1 and S2. No gallops, murmurs, or rubs. No pulse deficits. Respiratory: Lungs have equal breath sounds bilaterally, clear to auscultation and percussion. No rales, rhonchi or wheezes noted. No increased work of breathing, no retractions or nasal flaring. Abdomen/GI: Soft, with normal bowel sounds. No distension or tympany. No guarding or rebound. No evidence of tenderness throughout. Back: No spinal tenderness. No costovertebral tenderness. Skin: Warm, dry with normal turgor. Normal color with no rashes, no lesions, and no evidence of cellulitis. MS/ Extremity: Pulses equal, no cyanosis. Neurovascular intact. Full, normal range of motion. Neuro: Awake and alert, GCS 15, oriented to person, place, time, and situation. Cranial nerves II-XII grossly intact. Motor strength 5/5 in all extremities. Sensory grossly intact. Psych: Awake, alert, with orientation to person, place and time. Behavior, mood, and affect are within normal limits 04:54 ECG was reviewed by the Attending Physician. EKG at 2232 electronic ventricular pacemaker rate 73. Vital Signs: 06/17 21:39 BP 131 / 76; Pulse 81; Resp 18; Temp 97.8; Pulse Ox 100% ; Weight 50.35 kg; Height 5 cp4 ft. 0 in. ; Pain 0/10; 06/18 00:00 BP 146 / 81; Pulse 65; Resp 17; Pulse Ox 100% ; cp4 01:00 BP 152 / 103; Pulse 84; Resp 18; Pulse Ox 100% ; cp4 02:00 BP 103 / 58; Pulse 73; Resp 18; Pulse Ox 99% ; cp4 06/17 21:39 Body Mass Index 21.68 (50.35 kg, 152.4 cm) cp4 06/17 21:39 Pain Scale: Adult cp4 Verbena Coma Score: 04:54 Eye Response: spontaneous(4). Motor Response: obeys commands(6). Verbal Response: sp4 oriented(5). Total: 15. MDM: 06/17 21:44 Medical Screening Exam initiated [facility] 06/17 21:43 Order name: Basic Metabolic Panel; Complete Time: 00:09 [facility] 06/17 21:43 Order name: CBC with Diff; Complete Time: 00:09 [facility] 06/17 21:43 Order name: LFT's; Complete Time: 00:09 [facility] 06/17 21:43 Order name: Magnesium; Complete Time: 00:09 [facility] 06/17 21:43 Order name: NT PRO-BNP; Complete Time: 00:09 [facility] 06/17 21:43 Order name: PT-INR; Complete Time: 00:09 [facility] 06/17 21:43 Order name: Troponin HS; Complete Time: 00:09 [facility] 06/17 21:43 Order name: Urine Sodium Random; Complete Time: 00:09 [facility] 06/17 21:43 Order name: Osmolality, Serum; Complete Time: 00:09 [facility] 06/17 21:43 Order name: Urine Creatinine; Complete Time: 00:09 [facility] 06/17 21:43 Order name: Urine Potassium Random; Complete Time: 00:09 [facility] 06/18 05:31 Order name: Basic Metabolic Panel; Complete Time: 19:06 [facility] 06/18 08:05 Order name: Glucose, Ancillary Testing; Complete Time: 19:06 [facility] 06/18 09:47 Order name: Basic Metabolic Panel; Complete Time: 19: [facility] 06/18 10:46 Order name: Osmolality, Urine; Complete Time: 19:06 [facility] 06/18 14:35 Order name: BMP db 06/18 16:03 Order name: Basic Metabolic Panel; Complete Time: 19:06 [facility] 06/18 19:39 Order name: Basic Metabolic Panel [facility] 06/17 21:43 Order name: EKG; Complete Time: 21:43 [facility] 06/17 21:43 Order name: Cardiac monitoring; Complete Time: 23:07 [facility] 06/17 21:43 Order name: EKG - Nurse/Tech; Complete Time: 23:07 [facility] 06/17 21:43 Order name: IV Saline Lock; Complete Time: 23:07 sp4 06/17 21:43 Order name: Labs collected and sent; Complete Time: 23:07 sp4 06/17 21:43 Order name: O2 Per Protocol; Complete Time: 23:07 sp4 06/17 21:43 Order name: O2 Sat Monitoring; Complete Time: 23:07 sp4 EC:32 Rate is 73 beats/min. Rhythm is regular, Paced. Clinical impression: No evidence of sp4 ischemia. Interpreted by me. Reviewed by me. Administered Medications: 22:14 Drug: NS 0.9% IV 1000 ml IV at 100 ml/hr Per protocol; to be given at 100 ml / hour rg5 Route: IV; Rate: 100 ml/hr; Site: right antecubital; 06/18 05:39 Follow up: Response: No adverse reaction; IV Status: Completed infusion 4 06/17 22:53 Drug: Diazepam PO 2 mg PO once Route: PO; rg5 06/18 05:39 Follow up: Response: No adverse reaction 4 Disposition: 04:52 Chart complete. sp4 Disposition Summary: 06/18/25 04:53 Hospitalization Ordered Notes: Hospitalization Status: Inpatient Admission sp4 Provider: Jeffy Kern sp4 Condition: Serious sp4 Problem: new sp4 Symptoms: are unchanged sp4 Bed/Room Type: Standard sp4 Location: Telemetry/MedSurg (Inpatient)(06/18/25 20:58) ha1 Room Assignment: [facility](06/18/25 20:58) ha Diagnosis - Hypo-osmolality and hyponatremia sp4 - Acute hyponatremia sp4 Forms: - Medication Reconciliation Form sp4 - SBAR form sp4 - Leadership Thank You Letter sp4 Critical care time excluding procedures: 04:52 Critical care time: Bedside Care: 36 minutes, Consultation: 12 minutes, Family sp4 Intervention: 12 minutes. Total time: 60 minutes Signatures: Dispatcher [employer] Cathi Flaherty RN RN cg Sheryl Linares RN RN ha1 Francesco Brizuela MD MD sp4 Mable Murdock Rommel, RN RN rg5 Rebecca Fernandez RN RN ss12 Corrections: (The following items were deleted from the chart) 05:06 04:53 Intensive Care Unit sp4 05:06 04:53 sp4 cg 20:58 05:06 BR ER HOLD cg ha1 20:58 05:06 ERHOLD- cg ha1
--- NOTE | 2025-06-18 04:53 | ER ---
Nurse's Notes [facility] Name: Ynes Jacob Age: 79 yrs Sex: Female : 1945 Arrival Date: 06/17/2025 Time: 21:27 Bed 15 Private MD: Diagnosis: Hypo-osmolality and hyponatremia;Acute hyponatremia Presentation: 06/17 21:39 Chief complaint: Patient states: sent from Dr. Kern for low sodium. Coronavirus cp4 screen: Client denies travel out of the [place] in the last 14 days. At this time, the client does not indicate any symptoms associated with coronavirus-19. Ebola Screen: Patient negative for fever greater than or equal to 101.5 degrees Fahrenheit, and additional compatible Ebola Virus Disease symptoms Patient denies exposure to infectious person. Patient denies travel to an Ebola-affected area in the 21 days before illness onset. No symptoms or risks identified at this time. Initial Sepsis Screen: Does the patient meet any 2 criteria? No. Patient's initial sepsis screen is negative. Does the patient have a suspected source of infection? No. Patient's initial sepsis screen is negative. Risk Assessment: Do you want to hurt yourself or someone else? Patient reports no desire to harm self or others. Onset of symptoms is unknown. 21:39 Method Of Arrival: Ambulatory cp4 21:39 Acuity: MC 3 cp4 Triage Assessment: 21:41 General: Appears in no apparent distress. comfortable, Behavior is calm, cooperative, cp4 appropriate for age. Pain: Denies pain. Historical: - Allergies: 21:41 No Known Allergies; cp4 - Home Meds: 06/18 20:59 olmesartan-hydrochlorothiazide 40-25 mg oral tablet 1 tab daily [Active]; metformin ss12 1,000 mg Oral Tablet, Extended Release 24 hr 1 tab BID for type 2 diabetes mellitus [Active]; atorvastatin 20 mg oral tablet 1 tab every evening [Active]; - PMHx: 06/17 21:41 Anemia; diabetes mellitus; Hypertensive disorder; cp4 - PSHx: 21:41 section; pacemaker (an); cp4 - Immunization history:: Adult Immunizations up to date. - Infectious Disease History:: Denies. - Social history:: Smoking status: Patient denies any tobacco usage or history of. - Family history:: not pertinent. Screenin:40 [facility] ED Fall Risk Assessment (Adult) History of falling in the last 3 months, rg5 including since admission No falls in past 3 months (0 pts) Confusion or Disorientation No (0 pts) Intoxicated or Sedated No (0 pts) Impaired Gait Yes (1 pt) Mobility Assist Device Used Yes (1 pt) Altered Elimination No (0 pt) Score/Fall Risk Level 0 - 2 = Low Risk Oriented to surroundings, Maintained a safe environment, Hourly rounding (assess needs \T\ fall precautionary measures) done. Abuse screen: Denies threats or abuse. Nutritional screening: No deficits noted. Tuberculosis screening: No symptoms or risk factors identified. Assessment: 21:40 General: Appears in no apparent distress. comfortable. Pain: Denies pain. Neuro: Level rg5 of Consciousness is awake, alert, obeys commands. 21:40 Cardiovascular: Patient's skin is warm and dry. Respiratory: Airway is patent Trachea rg5 midline. GI: Abdomen is round. : No signs and/or symptoms were reported regarding the genitourinary system. EENT: No signs and/or symptoms were reported regarding the EENT system. Derm: Skin is intact, Skin is dry, Skin is normal. Musculoskeletal: Circulation, motion, and sensation intact. Range of motion: intact in all extremities. 06/18 00:09 Reassessment: Patient appears in no apparent distress at this time. No changes from cp4 previously documented assessment. Patient and/or family updated on plan of care and expected duration. Pain level reassessed. Patient is alert, oriented x 3, equal unlabored respirations, skin warm/dry/pink. 07:15 Reassessment: SEE [facility] FOR CONTINUED DOCUMENATION. db 20:05 General: Appears in no apparent distress. comfortable, Behavior is calm, quiet. Pain: ss12 Denies pain. Neuro: No deficits noted. Level of Consciousness is awake, alert, obeys commands, Oriented to person, place, time, situation. Cardiovascular: No deficits noted. Patient's skin is warm and dry. Respiratory: No deficits noted. Airway is patent Respiratory effort is even, unlabored, Respiratory pattern is regular, symmetrical. GI: No deficits noted. Abdomen is round non-distended. : No deficits noted. No signs and/or symptoms were reported regarding the genitourinary system. EENT: No deficits noted. No signs and/or symptoms were reported regarding the EENT system. Derm: No deficits noted. Skin is intact, Skin is dry, Skin is normal. Musculoskeletal: No deficits noted. No signs and/or symptoms reported regarding the musculoskeletal system. Vital Signs: 06/17 21:39 BP 131 / 76; Pulse 81; Resp 18; Temp 97.8; Pulse Ox 100% ; Weight 50.35 kg; Height 5 cp4 ft. 0 in. ; Pain 0/10; 06/18 00:00 BP 146 / 81; Pulse 65; Resp 17; Pulse Ox 100% ; cp4 01:00 BP 152 / 103; Pulse 84; Resp 18; Pulse Ox 100% ; cp4 02:00 BP 103 / 58; Pulse 73; Resp 18; Pulse Ox 99% ; cp4 06/17 21:39 Body Mass Index 21.68 (50.35 kg, 152.4 cm) cp4 06/17 21:39 Pain Scale: Adult cp4 [place] Coma Score: 04:54 Eye Response: spontaneous(4). Motor Response: obeys commands(6). Verbal Response: sp4 oriented(5). Total: 15. ED Course: 06/17 21:30 Patient arrived in ED. gm2 21:40 Francesco Brizuela MD is Attending Physician. sp4 21:40 Patient has correct armband on for positive identification. Door closed. Noise rg5 minimized. Warm blanket given. 21:40 No provider procedures requiring assistance completed. Inserted saline lock: 20 gauge rg5 in right antecubital area, using aseptic technique. Blood collected. Flushed with 10 mL NS. Patient maintains SpO2 saturation greater than 95% on room air. 21:41 Triage completed. cp4 21:41 Arm band placed on right wrist. Patient placed in waiting room. cp4 21:53 Lai Ledesma RN is Primary Nurse. rg5 06/18 02:17 Provided Education on: admission. cp4 02:17 Patient admitted, IV remains in place. cp4 04:52 Jeffy Kern MD is Hospitalizing Provider. sp4 11:28 Primary Nurse role handed off by Lai Ledesma RN bd 20:05 Rebecca Fernandez RN is Primary Nurse. ss12 Administered Medications: 06/17 22:14 Drug: NS 0.9% IV 1000 ml IV at 100 ml/hr Per protocol; to be given at 100 ml / hour rg5 Route: IV; Rate: 100 ml/hr; Site: right antecubital; 06/18 05:39 Follow up: Response: No adverse reaction; IV Status: Completed infusion cp4 06/17 22:53 Drug: Diazepam PO 2 mg PO once Route: PO; rg5 06/18 05:39 Follow up: Response: No adverse reaction cp4 Medication: 02:17 VIS not applicable for this client. cp4 Outcome: 02:17 Admitted to ER Hold. Please see [facility] for further documentation. cp4 02:17 Condition: stable 02:17 Instructed on the need for admit, 04:53 Decision to Hospitalize by Provider. sp4 22:06 Patient left the ED. ss12 Signatures: Rosario Brewer Danielle, RN RN db Francesco Brizuela MD MD sp4 Mable Murdock [facility] [place] Contreras [facility] Lai Ledesma RN RN 5 Rebecca Fernandez RN RN ss12
[2025-06-18 05:30] LABS: Anion Gap 13.6 mEq/L (5.0-15.0); BUN Blood Urea Nitrogen 16.0 mg/dL (7-18); Glucose Level 142.0 mg/dL (74-106); Potassium 3.6 mEq/L (3.5-5.1)
[2025-06-18] MEDS: NA CHLORIDE 3% 500 ML ONE (07:00)
[2025-06-18 09:44] LABS: Anion Gap 12.7 mEq/L (5.0-15.0); BUN Blood Urea Nitrogen 17.0 mg/dL (7-18); Glucose Level 190.0 mg/dL (74-106); Potassium 3.7 mEq/L (3.5-5.1)
[2025-06-18 16:03] LABS: Anion Gap 13.8 mEq/L (5.0-15.0); BUN Blood Urea Nitrogen 16.0 mg/dL (7-18); Glucose Level 170.0 mg/dL (74-106); Potassium 3.8 mEq/L (3.5-5.1)
--- NOTE | 2025-06-18 16:57 | P.HP ---
Patient History Date of Service: 06/18/25 Reason for admission: low sodium History of Present Illness: ALBER CAME TO OFFICE YESTERDAY FOR ROUTING FU. SHE HAD NO NEW SS. HER HANDS ARE BETTER. SHE HAD LAB AT [facility]. THEY CALLED ME LATER THAT HER SODIUM WAS DOWN TO 110. I CALLED HER AND GOT HER TO [facility]. I ASKED ER DOCTOR TO DO LAB, URINE OSM, SERUM OSM AND URINE SODIUM. START 35 SALINE AT 15 ML PER HOUR AND SODIUM CAME UP SLOWLY FROM 113 TO 118 AND 120 NOW. SHE WILL BE CHANGED BACK TO NS AT 50 ML NOW. Allergies No Known Allergies Allergy (Verified 10/21/23 15:10) Home Medications: Amlodipine [Norvasc*] 10 mg PO DAILY 02/05/24 Ascorbic Acid [Vitamin C] 250 mg PO DAILY 02/05/24 Atorvastatin Calcium 40 mg PO DAILY 02/05/24 Ferrous Sulfate [Ferrous Sulfate*] 325 mg PO BID 02/05/24 Metformin HCl 1,000 mg PO BID 02/05/24 Multivit-Min/Iron/Folic/Lutein [Multivitamin Women 50 Plus Tab] 1 tab PO DAILY 02/05/24 lisinopriL [Zestril] 40 mg PO DAILY 02/05/24 Amlodipine [Norvasc*] 10 mg PO DAILY #30 tab 02/06/24 Cefdinir [Cefdinir*] 300 mg PO BID 4 Days #8 cap 02/06/24 - Past Medical/Surgical History Has patient received pneumonia vaccine in the past: Yes -: Hypertension -: Anemia -: Diabetes mellitus type 2 -: -: Pacemaker Psychosocial/ Personal History: Lives at home with her son - Social History Smoking Status: Never smoker Alcohol use: No CD- Drugs: No Caffeine use: Yes Review of Systems 10-point ROS is otherwise unremarkable General: As per HPI Physical Examination - Vital Signs Temperature: 98 F Blood Pressure: 132/80 Pulse: 65 Respirations: 16 Pulse Ox (%): 100 - Physical Exam General: Alert, In no apparent distress HEENT: Atraumatic, PERRLA, Mucous membr. moist/pink, EOMI, Sclerae nonicteric Neck: Supple, 2+ carotid pulse no bruit, No LAD, Without JVD or thyroid abnormality Respiratory: Clear to auscultation bilaterally, Normal air movement Cardiovascular: Regular rate/rhythm, Normal S1 S2 Gastrointestinal: Normal bowel sounds, No tenderness Musculoskeletal: No tenderness Integumentary: No rashes Neurological: Normal gait, Normal speech, Normal strength at 5/5 x4 extr, Normal tone, Normal affect Lymphatics: No axilla or inguinal lymphadenopathy - Studies Laboratory Data (last 24 hrs) 06/17/25 06/17/25 06/17/25 22:10 22:10 22:10 WBC 8.90 Hgb 10.1 L Hct 28.2 L Plt Count 358 PT 13.1 H INR 1.16 Sodium 113 L* Potassium 4.1 BUN 18 Creatinine 0.76 Glucose 130 H Magnesium 1.2 L Total Bilirubin 0.5 AST 20 ALT 24 Alkaline Phosphatase 53 Assessment and Plan - Problems (Diagnosis) (1) Hypo-osmolar hyponatremia Current Visit: Yes Status: Acute Plan: SHE HAS BEEN ON OLME HCTZ THIS COULD BE REASON FOR LOW SODIUM WITH LOW URINE OSM AND HIGH URINE SODIUM CONT GENTLE HYDRATION. CHECK LAB IN AM. DC 3% SALINE. - Advance Directives Does patient have a Living Will: No Does patient have a Durable POA for Healthcare: No
[2025-06-18] MEDS: NA CHLORIDE 0.9% 1,000 ML IV SCH (17:30)
[2025-06-18] MEDS ORDERED: NA CHLORIDE 0.9% 1,000 ML ONE (17:46)
[2025-06-18 19:32] LABS: Anion Gap 12.1 mEq/L (5.0-15.0); BUN Blood Urea Nitrogen 18.0 mg/dL (7-18); Glucose Level 200.0 mg/dL (74-106); Potassium 4.1 mEq/L (3.5-5.1)
[2025-06-18 22:32] LABS: MPV 6.6 fL (7.6-11.3)
[2025-06-19 06:39] LABS: Sqamous Epithelial None Seen /HPF (None Seen); Urine Crystals Unidentified Few /HPF (None Seen); Urine Culture Reflex Order NOT NEEDED; Urine Microscopic Reflex YN ORDER UMIC; Urine WBC Clump Rare /HPF (None Seen); Urine Yeast (Budding) Trace /HPF (None Seen)
[2025-06-19 06:40] LABS: Anion Gap 12.9 mEq/L (5.0-15.0); BUN Blood Urea Nitrogen 18.0 mg/dL (7-18); Glucose Level 106.0 mg/dL (74-106); Magnesium 1.3 mg/dL (1.6-2.4); Potassium 3.9 mEq/L (3.5-5.1)
[2025-06-19 06:52] LABS: Absolute Lymphocytes (CBC) 1.3 K/uL (0.7-4.9); Hematocrit 29.0 % (36.0-45.0); Hemoglobin 10.4 g/dL (12.0-15.0); MCH 32.9 pg (27.0-35.0); MCHC 35.7 g/dL (32.0-36.0); MCV 92.3 fL (80-100); MPV 7.7 fL (7.6-11.3); Nucleated RBC Absolute Count 0.0 (0-0); Nucleated Red Blood Cells % 0.2 % (0-0); RBC Red Blood Cell Count 3.15 M/uL (3.86-4.86); White Blood Count 7.20 thou/uL (4.3-10.9)
[2025-06-19] MEDS: ENOXAPARIN 40 MG/0.4 ML SQ SCH (08:59)
[2025-06-19 09:23] VITALS: O2SAT 96
--- NOTE | 2025-06-19 09:24 | RAD REPORT ---
EXAM: CT brain without contrast HISTORY: hyponatremia COMPARISON: None TECHNIQUE: Multiple contiguous axial images were obtained and a CT of the brain without contrast. Sag ittal and coronal reformats were performed. One or more of the following dose reduction techniques were used: Automated exposure control, adjust ment of the mA and/or kV according to patient size, and/or iterative reconstruction. FINDINGS: No evidence of hydrocephalus, intracranial hemorrhage, or extra-axial fluid collection. Moderate brain atrophy with moderate periventricular and deep white matter chronic microvascular isc hemic changes present. No evidence of midline shift or areas of brain edema. The calvarium is intact. The visualized paranasal sinuses and mastoid air cells are essentially clear . IMPRESSION: No evidence of acute intracranial abnormality.
--- NOTE | 2025-06-19 18:01 | P.DS ---
Admission Date: 06/18/25 Discharge Date: 06/19/25 Disposition: ROUTINE DISCHARGE Discharge Condition: FAIR Reason for Admission: low sodium - Problems (1) Hypo-osmolar hyponatremia Current Visit: Yes Status: Acute Brief History of Present Illness: ALBER CAME TO OFFICE YESTERDAY FOR ROUTING FU. SHE HAD NO NEW SS. HER HANDS ARE BETTER. SHE HAD LAB AT [facility]. THEY CALLED ME LATER THAT HER SODIUM WAS DOWN TO 110. I CALLED HER AND GOT HER TO [facility]. I ASKED ER DOCTOR TO DO LAB, URINE OSM, SERUM OSM AND URINE SODIUM. START 35 SALINE AT 15 ML PER HOUR AND SODIUM CAME UP SLOWLY FROM 113 TO 118 AND 120 NOW. SHE WILL BE CHANGED BACK TO NS AT 50 ML NOW. Hospital Course: ALBER IS DOING GREAT. SHEHAD NO SYMPTOMS WITH SODIUM OF 110 AND DOING GREAT AT 123. HER SODIUM WAS CORRECTED SLOWLY. SHE HAS NORMAL CT BRAINAND CXR. SHE IS STABLE TO GO HOME. Vital Signs/Physical Exam: Temp Pulse Resp BP Pulse Ox 97.5 F 80 18 123/61 99 06/19/25 12:00 06/19/25 12:00 06/19/25 12:00 06/19/25 12:00 06/19/25 12:00 Laboratory Data at Discharge: WBC 7.20 thou/uL (4.3-10.9) 06/19/25 05:22 Hgb 10.4 g/dL (12.0-15.0) L 06/19/25 05:22 Hct 29.0 % (36.0-45.0) L 06/19/25 05:22 Plt Count 301 thou/uL (152-406) 06/19/25 05:22 PT 13.1 SECONDS (10-13.0) H 06/17/25 22:10 INR 1.16 06/17/25 22:10 Sodium 123 mEq/L (136-145) L D 06/19/25 05:22 Potassium 3.9 mEq/L (3.5-5.1) 06/19/25 05:22 BUN 18 mg/dL (7-18) 06/19/25 05:22 Creatinine 0.70 mg/dL (0.55-1.02) 06/19/25 05:22 Glucose 106 mg/dL (74-106) 06/19/25 05:22 Magnesium 1.3 mg/dL (1.6-2.4) L 06/19/25 05:22 Total Bilirubin 0.5 mg/dL (0.2-1.0) 06/17/25 22:10 AST 20 U/L (15-37) 06/17/25 22:10 ALT 24 U/L (13-56) 06/17/25 22:10 Alkaline Phosphatase 53 U/L (45-117) 06/17/25 22:10 Home Medications: Ascorbic Acid [Vitamin C] 250 mg PO DAILY 02/05/24 Atorvastatin Calcium 20 mg PO DAILY 02/05/24 Ferrous Sulfate [Ferrous Sulfate*] 325 mg PO BID 02/05/24 Multivit-Min/Iron/Folic/Lutein [Multivitamin Women 50 Plus Tab] 1 tab PO DAILY 02/05/24 Metformin HCl 1,000 mg PO BID 06/18/25 Olmesartan Medoxomil 40 mg PO DAILY #90 06/19/25 New Medications: Olmesartan Medoxomil 40 mg PO DAILY #90 Followup: Jeffy Kern MD [Primary Care Provider] -
[2025-06-19 18:53] VITALS: BP 120/59; TEMP 97.4
== END 2025-06-19 19:00 | disposition home or self-care (01) | DRG 641 ==
LOC: ER 21:27 → ERHOLD 06-18 00:51 → 4TH 06-18 21:44
PROVIDERS: ADMIT Internal Medicine; ATTEND Internal Medicine
DX: E87.1 Hypo-osmolality and hyponatremia (principal); I10 Essential (primary) hypertension; Z79.84 Long term (current) use of oral hypoglycemic drugs; Z79.899 Other long term (current) drug therapy; Z95.0 Presence of cardiac pacemaker; D64.9 Anemia, unspecified; Z98.890 Other specified postprocedural states
CPT/HCPCS: 36415; 70450; 80048; 80076; 81001; 82570; 82947; 83735; 83880; 83930; 83935; 84132; 84300; 84484; 85025; 85049; 85610; 93005; 94760; 96360; 96361; 99285; J1650; J7030; J7131